=== PATIENT | male | born 1970 | race Caucasian/White ===

== ENCOUNTER → 2016-11-15 | Outpatient (CLI) | payer MEDICAID ==
[~2016-11-15] MED LIST: REGADENOSON INJ 0.4 MG/5 ML DISP.SYRIN IV ONE
--- NOTE | 2016-11-15 20:41 | DRAGON STRESS TEST REPORT ---
Intravenous Lexiscan Cardiolite stress test using single photon emmision computerized tomography. Date of procedure: 11/15/2016. Ordering Provider: Dr. Jennifer Mclaughlin. Primary Care Provider: Ms. Sherry Short NP. [[facility]] Indication: Chest pain, and dyspnea on exertion. Coronary risk factors: Age, hypertension, dyslipidemia, history of tobacco abuse, and family history of coronary artery disease. Resting EKG: Sinus Rhythm. Poor R wave leads V1 to V6 Stress EKG: No changes of ischemia. The patient had no chest pain, or discomfort, and there were no arrhythmias. Reason for termination: Protocol. Conclusions: Normal EKG and hemodynamic response to IV Lexiscan. Nuclear data: At rest the patient was given 15.0 millicuries of technetium 99m sestamibi injected intravenously. As per protocol rest non gated SPECT images were obtained. Subsequently the patient was given intravenous Lexiscan at a dose of 0.4 mg in 5 mL intravenously, followed by flush with normal saline. Subsequently the stress dose of 43.4 millicuries of technetium 99m sestamibi was injected intravenously. As per protocol stress gated images were obtained. Nuclear interpretation: Review of images showed that all segments of the myocardium had normal perfusion at rest, and normal perfusion post stress with IV Lexiscan. All segments of the myocardium had normal motion, contraction, and thickening by gated study. T. I D. ratio was read by the computer as abnormal at 1.36. This is unreliable. Visually the T I D ratio is normal Computer read rest, and stress left ventricular ejection fraction were 66 %, and 59 %, respectively. Conclusion: 1. There is no scintigraphic evidence of Lexiscan induced myocardial ischemia. 2. There is no scintigraphic evidence of myocardial infarction/scar. Recommendations: Aggressive risk factor modification, and treating the underlying co- morbidities. MTDD
== END ==
LOC: RAD 06:00
PROVIDERS: ATTEND Specialist
DX: R07.9 Chest pain, unspecified (principal); R06.09 Other forms of dyspnea; I10 Essential (primary) hypertension; E78.5 Hyperlipidemia, unspecified; Z82.49 Family history of ischemic heart disease and other diseases of the circulatory system; Z87.891 Personal history of nicotine dependence
CPT/HCPCS: 93017; 78452; A9500; J2785; Q9969

== ENCOUNTER 2016-12-20 11:15 | Emergency (ER) | payer MEDICAID ==
--- NOTE | 2016-12-20 11:20 | ER Document Report ---
ED Medical Screen (RME) - General Stated Complaint: DIZZINESS Notes: 46 yo male c/o dizziness since 0500 this morning. pt hx/o vertigo. dizziness increases with change of position. sitting 117/90 88 standing 136/98 101 + nuasea, no fever TRAVEL OUTSIDE OF THE [place] IN LAST 30 DAYS: No - Related Data Allergies/Adverse Reactions: morphine [Morphine] Allergy (Intermediate, Verified 05/31/16 13:33) Hives naproxen [Naproxen] Adverse Reaction (Mild, Verified 05/31/16 13:40) Nausea Past Medical History Pulmonary Medical History: Reports: Hx Bronchitis, Hx COPD, Hx Pneumonia Denies: Hx Tuberculosis Renal/ Medical History: Reports: Hx Testicular Torsion GI Medical History: Reports: Hx Gastroesophageal Reflux Disease, Hx Hiatal Hernia - repaired in 2000 & 09/2015 Musculoskeltal Medical History: Reports Hx Arthritis, Reports Hx Musculoskeletal Trauma Psychiatric Medical History: Reports: Hx Depression Traumatic Medical History: Reports: Hx Fractures - boxer Past Surgical History: Reports: Hx Abdominal Surgery - hiatal hernia repair 10 years ago and again on 10/07/2015, Hx Appendectomy - 2002, Hx Cholecystectomy - 2009, Hx Genitourinary Surgery - testicular torsion pexy 1984 - Immunizations Immunizations up to date: Yes Hx Diphtheria, Pertussis, Tetanus Vaccination: Yes - 2006
[2016-12-20 11:59] LABS: ABSOLUTE BASOPHILS # (AUTO) 0.1 10^3/uL (0.0-0.2); ABSOLUTE EOSINOPHILS # (AUTO) 0.2 10^3/uL (0.0-0.6); ABSOLUTE LYMPHOCYTES (AUTO) 2.1 10^3/uL (0.5-4.7); ABSOLUTE MONOCYTES (AUTO) 0.3 10^3/uL (0.1-1.4); ABSOLUTE NEUT (AUTO) 4.6 10^3/uL (1.7-8.2); BASOPHILS % (AUTO) 1.8 % (0-2); EOSINOPHILS % (AUTO) 2.5 % (0-6); HEMATOCRIT 45.4 % (37.9-51.0); HEMOGLOBIN 15.6 g/dL (13.5-17.0); HGB HCT DIFFERENCE 1.4; MEAN CORPUSCULAR HEMOGLOBIN 31.8 pg (27.0-33.4); MEAN CORPUSCULAR HGB CONC 34.3 g/dL (32.0-36.0); MEAN CORPUSCULAR VOLUME 93 fl (80-97); MONOCYTES % (AUTO) 4.7 % (3-13); RED BLOOD COUNT 4.91 10^6/uL (4.35-5.55); RED CELL DISTRIBUTION WIDTH 14.2 % (11.5-14.0); WHITE BLOOD COUNT 7.4 10^3/uL (4.0-10.5)
[2016-12-20 12:08] LABS: ALANINE AMINOTRANSFERASE 38 U/L (21-72); ALBUMIN 4.4 g/dL (3.5-5.0); ALKALINE PHOSPHATASE 122 U/L (38-126); ANION GAP 12 (5-19); ASPARTATE AMINO TRANSFERASE 30 U/L (17-59); BILIRUBIN,TOTAL 0.4 mg/dL (0.2-1.3); BLOOD UREA NITROGEN 12 mg/dL (7-20); CALCIUM 9.7 mg/dL (8.4-10.2); CARBON DIOXIDE 23 mmol/L (22-30); CHLORIDE 106 mmol/L (98-107); CREATINE KINASE 186 U/L (55-170); CREATININE RESULT 0.84 mg/dL (0.52-1.25); GLUCOSE 164 mg/dL (75-110); POTASSIUM 4.8 mmol/L (3.6-5.0); SODIUM 141.2 mmol/L (137-145); TOTAL PROTEIN 7.5 g/dL (6.3-8.2)
[2016-12-20 12:20] LABS: CREATINE KINASE MB 1.27 ng/mL (<4.55)
[2016-12-20 12:24] LABS: TROPONIN I < 0.012 ng/mL
[2016-12-20 12:27] LABS: APPEARANCE,URINE CLEAR; BILIRUBIN,URINE NEGATIVE (NEGATIVE); GLUCOSE, URINE NEGATIVE (NEGATIVE); KETONES,URINE NEGATIVE (NEGATIVE); LEUKOCYTE ESTERASE,URINE NEGATIVE (NEGATIVE); NITRITE,URINE NEGATIVE (NEGATIVE); PROTEIN,URINE NEGATIVE (NEGATIVE); URINE SPECIFIC GRAVITY 1.019; UROBILINOGEN,URINE NEGATIVE mg/dL (<2.0)
[2016-12-20] MEDS ORDERED: NORMAL SALINE 1000 ML 1,000 ML IV PRN (12:49)
[2016-12-20] MEDS ORDERED: ONDANSETRON HCL INJ/PF 4 MG/2 ML SDV IV ONE (12:52)
[2016-12-20] MEDS ORDERED: PROCHLORPERAZINE EDISYLATE INJ 10 MG/2 ML VIAL IV ONE (12:52)
--- NOTE | 2016-12-20 14:29 | ER Document Report ---
ED General - General Chief Complaint: Dizziness Stated Complaint: DIZZINESS TRAVEL OUTSIDE OF THE [place] IN LAST 30 DAYS: No - HPI Patient complains to provider of: dizziness Notes: Patient coming in for evaluation of dizziness. Patient called EMS upon arrival did perform orthostatics which were positive. Patient denies any nausea vomiting fever chills chest pain abdominal pain for his dizziness. Patient states dizziness is increased with change of position. Otherwise patient denies any recent antibiotics travel denies any other symptoms - Related Data Allergies/Adverse Reactions: morphine [Morphine] Allergy (Intermediate, Verified 12/20/16 11:18) Hives naproxen [Naproxen] Adverse Reaction (Mild, Verified 12/20/16 11:18) Nausea Past Medical History - Social History Smoking Status: Former Smoker Chew tobacco use (# tins/day): No Frequency of alcohol use: None Drug Abuse: None Family History: Reviewed & Not Pertinent, Arthritis, CAD, CVA, Hyperlipidemia, Hypertension, Other Patient has suicidal ideation: No Patient has homicidal ideation: No - Past Medical History Cardiac Medical History: Reports: Hx Hypercholesterolemia, Hx Hypertension Pulmonary Medical History: Reports: Hx Bronchitis, Hx COPD, Hx Pneumonia Denies: Hx Tuberculosis Renal/ Medical History: Reports: Hx Testicular Torsion. Denies: Hx Peritoneal Dialysis GI Medical History: Reports: Hx Gastroesophageal Reflux Disease, Hx Hiatal Hernia - repaired in 2000 & 09/2015 Musculoskeltal Medical History: Reports Hx Arthritis, Reports Hx Musculoskeletal Trauma Psychiatric Medical History: Reports: Hx Depression Traumatic Medical History: Reports: Hx Fractures - boxer Past Surgical History: Reports: Hx Abdominal Surgery - hiatal hernia repair 10 years ago and again on 10/07/2015, Hx Appendectomy - 2002, Hx Cholecystectomy - 2009, Hx Genitourinary Surgery - testicular torsion pexy 1984 - Immunizations Immunizations up to date: Yes Hx Diphtheria, Pertussis, Tetanus Vaccination: Yes - 2006 Review of Systems - Review of Systems Constitutional: No symptoms reported EENT: No symptoms reported Cardiovascular: No symptoms reported Respiratory: No symptoms reported Gastrointestinal: No symptoms reported Genitourinary: No symptoms reported Male Genitourinary: No symptoms reported Musculoskeletal: No symptoms reported Skin: No symptoms reported Hematologic/Lymphatic: No symptoms reported Neurological/Psychological: Other - Dizziness -: Yes All other systems reviewed and negative Physical Exam - Vital signs Vitals: Temp Pulse Resp BP Pulse Ox 97.9 F 96 16 129/89 H 92 02/22/17 11:26 12/20/16 11:26 12/20/16 11:26 12/20/16 11:26 12/20/16 11:26 Interpretation: Normal - General General appearance: Appears well, Alert - HEENT Head: Normocephalic, Atraumatic Eyes: Normal Pupils: PERRL - Respiratory Respiratory status: No respiratory distress Chest status: Nontender Breath sounds: Normal Chest palpation: Normal - Cardiovascular Rhythm: Regular Heart sounds: Normal auscultation Murmur: No - Abdominal Inspection: Normal Distension: No distension Bowel sounds: Normal Tenderness: Nontender Organomegaly: No organomegaly - Back Back: Normal, Nontender - Extremities General upper extremity: Normal inspection, Nontender, Normal color, Normal ROM , Normal temperature General lower extremity: Normal inspection, Nontender, Normal color, Normal ROM , Normal temperature, Normal weight bearing. No: Maximus's sign - Neurological Neuro grossly intact: Yes Cognition: Normal Orientation: AAOx4 Priya Coma Scale Eye Opening: Spontaneous [place] Coma Scale Verbal: Oriented [place] Coma Scale Motor: Obeys Commands [place] Coma Scale Total: 15 Speech: Normal Motor strength normal: LUE, RUE, LLE, RLE Sensory: Normal - Psychological Associated symptoms: Normal affect, Normal mood - Skin Skin Temperature: Warm Skin Moisture: Dry Skin Color: Normal Course - Re-evaluation Re-evalutation: 12/20/16 16:06 Patient's symptoms improved with IV hydration. Patient was encouraged to drink plenty of fluids at home as that he is more likely is experiencing orthostatic dizziness. Patient states understanding was discharged home. - Vital Signs Vital signs: Temp Pulse Resp BP Pulse Ox 97.5 F 74 16 129/85 H 98 12/20/16 14:43 12/20/16 14:43 12/20/16 14:43 12/20/16 14:43 12/20/16 14:43 - Laboratory Result Diagrams: 12/20/16 11:30 12/20/16 11:30 Laboratory results interpreted by me: 12/20/16 12/20/16 11:30 11:30 RDW 14.2 H Glucose 164 H Creatine Kinase 186 H Discharge - Discharge Clinical Impression: Orthostatic dizziness, Dehydration Condition: Good Disposition: HOME, SELF-CARE Instructions: Dizziness ([facility]), Orthostatic Hypotension ([facility]), Dehydration ([facility]) Additional Instructions: Take medication as prescribed. Return to the ER symptoms worsen. Follow-up with your primary care physician. Prescriptions: Ondansetron [Zofran Odt 4 mg Tablet] 1 - 2 tab PO Q4H PRN #20 tab.rapdis PRN Reason: For Nausea/Vomiting Prochlorperazine Maleate [Compazine 10 mg Tablet] 10 mg PO ASDIR PRN #20 tablet PRN Reason: Forms: Return to Work
[2016-12-20 14:49] VITALS: BP 129/85
== END 2016-12-20 14:49 | disposition home or self-care (01) ==
LOC: ER 11:15
DX: R42 Dizziness and giddiness (principal); E86.0 Dehydration; E78.00 Pure hypercholesterolemia, unspecified; I10 Essential (primary) hypertension; J44.9 Chronic obstructive pulmonary disease, unspecified; Z88.6 Allergy status to analgesic agent; Z90.49 Acquired absence of other specified parts of digestive tract
CPT/HCPCS: 99284; 96361; 96374; 96375; 36415; 82553; 82550; 85025; 80053; 81001; 84484; J0780; J2405; J7030

== ENCOUNTER → 2017-03-28 | Outpatient (CLI) | payer OTHER ==
[~2017-03-28] MED LIST changes: +ALBUTEROL SULFATE 0.083% NEB 2.5 MG/3 ML AMPUL NEB ONE; -REGADENOSON INJ 0.4 MG/5 ML DISP.SYRIN IV ONE
--- NOTE | 2017-03-29 08:54 | PULMONARY FUNCTION TEST ---
DATE OF SERVICE: 03/28/2017 THE VITAL CAPACITY IS NORMAL. THE EXPIRATORY FLOW RATES ARE SLIGHTLY DECREASED. THE FEV1/VC IS 51%, PREDICTED: 81% THE DLCO IS 19.1, 66% OF PREDICTED. AFTER BRONCHODILATOR, EXPIRATORY FLOW RATES SHOW NO SIGNIFICANT CHANGE. IMPRESSION: GOOD PATIENT EFFORT. SLIGHT OBSTRUCTIVE DEFECT. DIFFUSING CAPACITY IS MODERATELY DECREASED. CC: AISHA BERGERON MD > ELYD
== END ==
LOC: RT 12:58
PROVIDERS: ATTEND Psychiatry & Neurology Psychiatry
DX: J44.9 Chronic obstructive pulmonary disease, unspecified (principal)
CPT/HCPCS: 94060; 94729

== ENCOUNTER 2017-11-22 12:18 | Emergency (ER) | payer MEDICAID ==
--- NOTE | 2017-11-22 15:04 | ER Document Report ---
ED Medical Screen (RME) - General Chief Complaint: Chest Pain Stated Complaint: CHEST PAIN Time Seen by Provider: 11/22/17 14:57 Mode of Arrival: Medic Information source: Patient Notes: 46 yo ex smoker, hyperlipidemic, htn, non dm, no CAD, COPD, male brought in by EMS with left chest tightness at 9:30 am while watching TV 4/5, radiation to left jaw and into left shoulder,dizzy, hands got sweaty, elevated blood pressure while watching TV, 325mg aspiring taken this morning at 10:30 am. Stress test and echo 2017 normal at [facility] -preop for paritial left pneumotectomy ( COPD) which was not done. No fever. Chronic cough. FH: dad stroke. Pain level stil 4/5 at this time. TRAVEL OUTSIDE OF THE [place] IN LAST 30 DAYS: No - Related Data Allergies/Adverse Reactions: morphine [Morphine] Allergy (Intermediate, Verified 12/20/16 11:18) Hives naproxen [Naproxen] Adverse Reaction (Mild, Verified 12/20/16 11:18) Nausea Past Medical History - Past Medical History Cardiac Medical History: Reports: Hx Hypercholesterolemia, Hx Hypertension Pulmonary Medical History: Reports: Hx Bronchitis, Hx COPD, Hx Pneumonia Denies: Hx Tuberculosis Renal/ Medical History: Reports: Hx Testicular Torsion. Denies: Hx Peritoneal Dialysis GI Medical History: Reports: Hx Gastroesophageal Reflux Disease, Hx Hiatal Hernia - repaired in 2000 & 09/2015 Musculoskeltal Medical History: Reports Hx Arthritis, Reports Hx Musculoskeletal Trauma Psychiatric Medical History: Reports: Hx Depression Traumatic Medical History: Reports: Hx Fractures - boxer Past Surgical History: Reports: Hx Abdominal Surgery - hiatal hernia repair 10 years ago and again on 10/07/2015, Hx Appendectomy - 2002, Hx Cholecystectomy - 2009, Hx Genitourinary Surgery - testicular torsion pexy 1984 - Immunizations Immunizations up to date: Yes Hx Diphtheria, Pertussis, Tetanus Vaccination: Yes - 2006 Physical Exam - Vital signs Vitals: Temp Pulse Resp BP Pulse Ox 98.4 F 74 16 134/83 H 98 11/22/17 13:19 11/22/17 13:19 11/22/17 13:19 11/22/17 13:19 11/22/17 13:19 Course - Vital Signs Vital signs: Temp Pulse Resp BP Pulse Ox 98.4 F 74 16 134/83 H 98 11/22/17 13:19 11/22/17 13:19 11/22/17 13:19 11/22/17 13:19 11/22/17 13:19
[2017-11-22] MEDS ORDERED: ASPIRIN 81 MG TABLET, CHEWABLE PO ONE (15:05)
--- NOTE | 2017-11-22 15:40 | EKG REPORT ---
SEVERITY:- NORMAL ECG - SINUS RHYTHM : Confirmed by: Rossana Roman 22-Nov-2017 15:39:57
--- NOTE | 2017-11-22 15:55 | RADIOLOGY REPORT (SQ) ---
EXAM DESCRIPTION: CHEST PA/LAT COMPLETED DATE/TIME: 11/22/2017 3:47 pm REASON FOR STUDY: left chest pain COMPARISON: 05/25/2016. EXAM PARAMETERS: NUMBER OF VIEWS: two views TECHNIQUE: Digital Frontal and Lateral radiographic views of the chest acquired. RADIATION DOSE: NA LIMITATIONS: none FINDINGS: LUNGS AND PLEURA: Mild basilar scarring. No opacities, masses or pneumothorax. No pleural effusion. MEDIASTINUM AND HILAR STRUCTURES: No masses or contour abnormalities. HEART AND VASCULAR STRUCTURES: Heart normal size. No evidence for failure. BONES: No acute findings. HARDWARE: None in the chest. OTHER: No other significant finding. IMPRESSION: NO ACUTE RADIOGRAPHIC FINDING IN THE CHEST. TECHNICAL DOCUMENTATION: JOB ID: [id number] [employer]- All Rights Reserved
[2017-11-22 15:57] LABS: ABSOLUTE BASOPHILS # (AUTO) 0.1 10^3/uL (0.0-0.2); ABSOLUTE LYMPHOCYTES (AUTO) 2.7 10^3/uL (0.5-4.7); ABSOLUTE MONOCYTES (AUTO) 0.3 10^3/uL (0.1-1.4); ABSOLUTE NEUT (AUTO) 4.5 10^3/uL (1.7-8.2); EOSINOPHILS % (AUTO) 0.2 % (0-6); HEMATOCRIT 47.5 % (37.9-51.0); HEMOGLOBIN 16.2 g/dL (13.5-17.0); LYMPHOCYTES % (AUTO) 35.2 % (13-45); MEAN CORPUSCULAR HEMOGLOBIN 31.4 pg (27.0-33.4); MEAN CORPUSCULAR HGB CONC 34.1 g/dL (32.0-36.0); MEAN CORPUSCULAR VOLUME 92 fl (80-97); MONOCYTES % (AUTO) 4.5 % (3-13); PLATELET COUNT 295 10^3/uL (150-450); RED BLOOD COUNT 5.16 10^6/uL (4.35-5.55); RED CELL DISTRIBUTION WIDTH 13.9 % (11.5-14.0); SEGMENTED NEUTROPHILS % (AUTO) 59.1 % (42-78); TOTAL CELLS COUNTED % (AUTO) 100 %; WHITE BLOOD COUNT 7.6 10^3/uL (4.0-10.5)
[2017-11-22 16:12] LABS: ALANINE AMINOTRANSFERASE 36 U/L (21-72); ALBUMIN 4.8 g/dL (3.5-5.0); ALKALINE PHOSPHATASE 92 U/L (38-126); ANION GAP 12 (5-19); ASPARTATE AMINO TRANSFERASE 29 U/L (17-59); BILIRUBIN,DIRECT 0.2 mg/dL (0.0-0.4); BILIRUBIN,TOTAL 0.5 mg/dL (0.2-1.3); BLOOD UREA NITROGEN 9 mg/dL (7-20); CALCIUM 10.2 mg/dL (8.4-10.2); CARBON DIOXIDE 24 mmol/L (22-30); CHLORIDE 106 mmol/L (98-107); CREATINE KINASE 188 U/L (55-170); GLUCOSE 94 mg/dL (75-110); POTASSIUM 4.5 mmol/L (3.6-5.0); SODIUM 141.8 mmol/L (137-145); TOTAL PROTEIN 7.6 g/dL (6.3-8.2)
[2017-11-22 16:25] LABS: CREATINE KINASE MB 1.35 ng/mL (<4.55); TROPONIN I < 0.012 ng/mL
[2017-11-22] MEDS ORDERED: LORAZEPAM 1 MG TABLET PO ONE (19:36)
--- NOTE | 2017-11-22 19:39 | ER Document Report ---
ED General - General Chief Complaint: Chest Pain Stated Complaint: CHEST PAIN Time Seen by Provider: 11/22/17 14:57 Mode of Arrival: Medic Notes: Patient is a 46-year-old male that comes emergency department by EMS for chief complaint of chest pain. He states that he was sitting watching TV at about 9 - 9:30 a.m. when he started having chest tightness that radiates to his left shoulder and up towards his neck, he states pain has been present since that time, he reports being intermittently nauseated but denies vomiting. He does report the pain is worse when he moves or raises his left arm/shoulder. He denies injury. He states he felt a little bit lightheaded, he was given 2 sublingual nitroglycerin in route and this made his lightheadedness worse. He took 325 mg of aspirin this morning. Past medical history of previous smoking, COPD, chronic cough, hypertension, hyperlipidemia, and "chronic anxiety and depression". He states he is out of his blood pressure and hyperlipidemia medications. He denies any recreational drugs. He denies fever or chills. No primary family members with HI history. He had a echocardiogram and stress test last year that were normal. TRAVEL OUTSIDE OF THE [place] IN LAST 30 DAYS: No - Related Data Allergies/Adverse Reactions: morphine [Morphine] Allergy (Intermediate, Verified 12/20/16 11:18) Hives naproxen [Naproxen] Adverse Reaction (Mild, Verified 12/20/16 11:18) Nausea Past Medical History - General Information source: Patient - Social History Smoking Status: Former Smoker Chew tobacco use (# tins/day): No Frequency of alcohol use: None Drug Abuse: None Family History: Reviewed & Not Pertinent, Arthritis, CAD, CVA, Hyperlipidemia, Hypertension, Other Patient has suicidal ideation: No Patient has homicidal ideation: No - Past Medical History Cardiac Medical History: Reports: Hx Hypercholesterolemia, Hx Hypertension Pulmonary Medical History: Reports: Hx Bronchitis, Hx COPD, Hx Pneumonia Denies: Hx Tuberculosis Renal/ Medical History: Reports: Hx Testicular Torsion. Denies: Hx Peritoneal Dialysis GI Medical History: Reports: Hx Gastroesophageal Reflux Disease, Hx Hiatal Hernia - repaired in 2000 & 09/2015 Musculoskeltal Medical History: Reports Hx Arthritis, Reports Hx Musculoskeletal Trauma Psychiatric Medical History: Reports: Hx Depression Traumatic Medical History: Reports: Hx Fractures - boxer Past Surgical History: Reports: Hx Abdominal Surgery - hiatal hernia repair 10 years ago and again on 10/07/2015, Hx Appendectomy - 2002, Hx Cholecystectomy - 2009, Hx Genitourinary Surgery - testicular torsion pexy 1984 - Immunizations Immunizations up to date: Yes Hx Diphtheria, Pertussis, Tetanus Vaccination: Yes - 2006 Review of Systems - Review of Systems Constitutional: No symptoms reported EENT: No symptoms reported Cardiovascular: See HPI Respiratory: No symptoms reported Gastrointestinal: See HPI Genitourinary: No symptoms reported Male Genitourinary: No symptoms reported Musculoskeletal: No symptoms reported Skin: No symptoms reported Hematologic/Lymphatic: No symptoms reported Neurological/Psychological: See HPI Physical Exam - Vital signs Vitals: Temp Pulse Resp BP Pulse Ox 98.4 F 74 16 134/83 H 98 11/22/17 13:19 11/22/17 13:19 11/22/17 13:19 11/22/17 13:19 11/22/17 13:19 Interpretation: Normal - General General appearance: Appears well, Alert In distress: None - HEENT Head: Normocephalic, Atraumatic Eyes: Normal Conjunctiva: Normal Extraocular movements intact: Yes Eyelashes: Normal Pupils: PERRL Mouth/Lips: Normal Mucous membranes: Normal Pharynx: Normal Neck: Normal - Respiratory Respiratory status: No respiratory distress Chest status: Tender Breath sounds: Normal. No: Decreased air movement, Wheezing Chest palpation: Normal - Cardiovascular Rhythm: Regular. No: Tachycardia Heart sounds: Normal auscultation, S1 appreciated, S2 appreciated Murmur: No - Abdominal Inspection: Normal Distension: No distension Bowel sounds: Normal Tenderness: Nontender. No: Tender, Guarding - Back Back: Normal, Nontender. No: Tender - Extremities General upper extremity: Other - Tenderness with palpation over the left pectoralis muscles, mildly over the supraspinatus, and also mildly over the posterior shoulder. Some pain with movement of the shoulder. Full range of motion is still intact. Normal strength, normal distal neurovascular exam. General lower extremity: Normal inspection, Nontender, Normal ROM, Normal strength - Neurological Neuro grossly intact: Yes Cognition: Normal Orientation: AAOx4 [place] Coma Scale Eye Opening: Spontaneous [place] Coma Scale Verbal: Oriented [place] Coma Scale Motor: Obeys Commands [place] Coma Scale Total: 15 Speech: Normal Motor strength normal: LUE, RUE, LLE, RLE Sensory: Normal - Psychological Associated symptoms: Normal affect, Normal mood - Skin Skin Temperature: Warm Skin Moisture: Dry Skin Color: Normal Course - Re-evaluation Re-evalutation: EKG sinus rhythm with no T-wave inversions or ST segment changes in consecutive leads. Chest x-ray unremarkable. CBC, chemistry unremarkable. Troponin negative. Troponin will be cycled to make sure it is not significantly elevated , however patient has had about 12 hours of symptoms, on examination he has tenderness with movement of his left arm/shoulder, over his upper pectoralis muscle, and over his posterior left shoulder. Appears to be musculoskeletal on exam. Patient has had recent and multiple workups with no evidence of cardiac abnormalities at this point. His symptoms are very nonspecific and reproducible. Patient asking for something for anxiety, he was initially given Ativan. Discussed workup with patient. Patient will be treated with muscle relaxer, discussed additional treatment and follow-up for his shoulder at home, discussed return precautions in detail, patient states satisfaction and agreement. - Vital Signs Vital signs: Temp Pulse Resp BP Pulse Ox 98.6 F 74 18 113/82 94 11/22/17 23:08 11/22/17 13:19 11/22/17 23:07 11/22/17 23:08 11/22/17 23:01 - Laboratory Result Diagrams: 11/22/17 15:40 11/22/17 15:40 Laboratory results interpreted by me: 11/22/17 15:40 Creatine Kinase 188 H Discharge - Discharge Clinical Impression: Left shoulder pain Qualifiers: Chronicity: acute Qualified Code(s): M25.512 - Pain in left shoulder Chest pain Qualifiers: Chest pain type: unspecified Qualified Code(s): R07.9 - Chest pain, unspecified Condition: Stable Disposition: HOME, SELF-CARE Additional Instructions: Your workup today does not show any concerning abnormalities. On exam you have left shoulder and rotator cuff pain. Apply heat to the area, take muscle relaxant as prescribed, rest the shoulder. Follow-up with primary care. Return for any concerning or worsening symptoms including difficulty breathing, vomiting, fever, or any other concerning symptoms. Prescriptions: Methocarbamol [Robaxin 750 mg Tablet] 750 mg PO Q6 #20 tablet
[2017-11-22] MEDS ORDERED: ONDANSETRON HCL INJ/PF 4 MG/2 ML SDV IV ONE (22:35)
[2017-11-22] MEDS ORDERED: KETOROLAC TROMETHAMINE INJ/PF 30 MG/1 ML SDV IV ONE (22:56)
[2017-11-22 23:15] VITALS: BP 113/82
== END 2017-11-22 23:14 | disposition home or self-care (01) ==
LOC: ER 12:18
DX: M25.512 Pain in left shoulder (principal); R07.9 Chest pain, unspecified; E78.00 Pure hypercholesterolemia, unspecified; I10 Essential (primary) hypertension; J44.9 Chronic obstructive pulmonary disease, unspecified; Z88.6 Allergy status to analgesic agent; Z87.891 Personal history of nicotine dependence; Z90.49 Acquired absence of other specified parts of digestive tract
CPT/HCPCS: 93005; 99285; 96374; 36415; 82553; 82550; 85025; 80053; 84484; 71046; 93010; J2405

== ENCOUNTER 2018-06-12 14:04 | Emergency (ER) | payer MEDICAID ==
[2018-06-12 14:47] LABS: ABSOLUTE BASOPHILS # (AUTO) 0.1 10^3/uL (0.0-0.2); ABSOLUTE LYMPHOCYTES (AUTO) 2.4 10^3/uL (0.5-4.7); ABSOLUTE MONOCYTES (AUTO) 0.5 10^3/uL (0.1-1.4); ABSOLUTE NEUT (AUTO) 3.7 10^3/uL (1.7-8.2); BASOPHILS % (AUTO) 1.3 % (0-2); EOSINOPHILS % (AUTO) 0.3 % (0-6); HEMATOCRIT 45.4 % (37.9-51.0); HEMOGLOBIN 15.8 g/dL (13.5-17.0); LYMPHOCYTES % (AUTO) 35.6 % (13-45); MEAN CORPUSCULAR HEMOGLOBIN 32.6 pg (27.0-33.4); MEAN CORPUSCULAR HGB CONC 34.8 g/dL (32.0-36.0); MEAN CORPUSCULAR VOLUME 94 fl (80-97); MONOCYTES % (AUTO) 6.9 % (3-13); PLATELET COUNT 316 10^3/uL (150-450); RED BLOOD COUNT 4.84 10^6/uL (4.35-5.55); RED CELL DISTRIBUTION WIDTH 14.5 % (11.5-14.0); SEGMENTED NEUTROPHILS % (AUTO) 55.9 % (42-78); TOTAL CELLS COUNTED % (AUTO) 100 %; WHITE BLOOD COUNT 6.6 10^3/uL (4.0-10.5)
[2018-06-12 15:17] LABS: ALANINE AMINOTRANSFERASE 31 U/L (21-72); ALBUMIN 4.8 g/dL (3.5-5.0); ALKALINE PHOSPHATASE 98 U/L (38-126); ANION GAP 16 (5-19); ASPARTATE AMINO TRANSFERASE 43 U/L (17-59); BILIRUBIN,DIRECT 0.3 mg/dL (0.0-0.4); BILIRUBIN,TOTAL 0.6 mg/dL (0.2-1.3); BLOOD UREA NITROGEN 11 mg/dL (7-20); CALCIUM 9.8 mg/dL (8.4-10.2); CARBON DIOXIDE 20 mmol/L (22-30); CHLORIDE 110 mmol/L (98-107); CREATINE KINASE 686 U/L (55-170); GLUCOSE 98 mg/dL (75-110); POTASSIUM 4.2 mmol/L (3.6-5.0); TOTAL PROTEIN 8.4 g/dL (6.3-8.2)
[2018-06-12 15:28] LABS: CREATINE KINASE MB 2.75 ng/mL (<4.55)
[2018-06-12 15:29] LABS: TROPONIN I < 0.012 ng/mL
--- NOTE | 2018-06-12 16:03 | RADIOLOGY REPORT (SQ) ---
EXAM DESCRIPTION: CHEST SINGLE VIEW COMPLETED DATE/TIME: 06/12/2018 3:54 pm REASON FOR STUDY: bed 3 cp COMPARISON: 11/22/2017 EXAM PARAMETERS: NUMBER OF VIEWS: One view. TECHNIQUE: Single frontal radiographic view of the chest acquired. RADIATION DOSE: NA LIMITATIONS: None. FINDINGS: LUNGS AND PLEURA: Stable linear areas of increased density are seen bilaterally consistent with mild scarring. Atelectasis felt be less likely. Lungs appear free of active infiltrates. No effusions. MEDIASTINUM AND HILAR STRUCTURES: No masses. Contour normal. HEART AND VASCULAR STRUCTURES: Heart normal in size. Normal vasculature. BONES: No acute findings. HARDWARE: None in the chest. OTHER: No other significant finding. IMPRESSION: Chronic changes without evidence of acute cardiopulmonary disease. TECHNICAL DOCUMENTATION: JOB ID: [id number] [employer]- All Rights Reserved Reading location - IP/workstation name: [email or web address]
[2018-06-12] MEDS ORDERED: NORMAL SALINE 1000 ML 1,000 ML IV ONE (16:50)
[2018-06-12] MEDS ORDERED: METHYLPREDNISOLONE INJ 125 MG/2 ML SDV IV ONE (16:50)
[2018-06-12] MEDS ORDERED: IPRATROPIUM/ALBUTEROL 0.5-2.5 MG/3 ML AMPUL NEB ONE (16:50)
--- NOTE | 2018-06-12 16:55 | ER Document Report ---
ED Cardiac - General Chief Complaint: Chest Pain Stated Complaint: DIZZY Time Seen by Provider: 06/12/18 16:21 Notes: Patient was at work today and he felt dizzy and SOB. HX OF copd. Followed by Dr. Ocasio. Has chronic left sided chest pain. Denies any major symptoms at this time. States he feels a little bit dizzy but otherwise feels a little bit better. That the nitro did not do anything other than give him a headache. TRAVEL OUTSIDE OF THE [place] IN LAST 30 DAYS: No - HPI Patient complains to provider of: Chest pain, Chest tightness, Shortness of breath Was the onset of pain: Gradual Is the pain a: Chronic problem Chest pain location: Substernal Quality of pain: Intermittent, Mild - Related Data Allergies/Adverse Reactions: morphine [Morphine] Allergy (Intermediate, Verified 12/20/16 11:18) Hives naproxen [Naproxen] Adverse Reaction (Mild, Verified 12/20/16 11:18) Nausea Past Medical History - General Information source: Patient - Social History Smoking Status: Current Every Day Smoker Chew tobacco use (# tins/day): No Frequency of alcohol use: Rare Drug Abuse: None Lives with: Family Family History: Reviewed & Not Pertinent, Arthritis, CAD, CVA, Hyperlipidemia, Hypertension, Other Patient has suicidal ideation: No Patient has homicidal ideation: No - Past Medical History Cardiac Medical History: Reports: Hx Hypercholesterolemia, Hx Hypertension Pulmonary Medical History: Reports: Hx Bronchitis, Hx COPD, Hx Pneumonia Denies: Hx Tuberculosis Renal/ Medical History: Reports: Hx Testicular Torsion. Denies: Hx Peritoneal Dialysis GI Medical History: Reports: Hx Gastroesophageal Reflux Disease, Hx Hiatal Hernia - repaired in 2000 & 09/2015 Musculoskeletal Medical History: Reports Hx Arthritis, Reports Hx Musculoskeletal Trauma Psychiatric Medical History: Reports: Hx Depression Traumatic Medical History: Reports: Hx Fractures - boxer Past Surgical History: Reports: Hx Abdominal Surgery - hiatal hernia repair 10 years ago and again on 10/07/2015, Hx Appendectomy - 2002, Hx Cholecystectomy - 2009, Hx Genitourinary Surgery - testicular torsion pexy 1984 - Immunizations Immunizations up to date: Yes Hx Diphtheria, Pertussis, Tetanus Vaccination: Yes - 2006 Review of Systems - Review of Systems Notes: Constitutional: denies: Chills, Diaphoresis, Fever, Malaise, Weakness EENT: denies: Eye discharge, Blurred vision, Tearing, Double vision, Nose congestion, Nose discharge, Throat swelling, Mouth pain Cardiovascular: Patient complaining of some left-sided chest pain worse with deep inspiration, mild dizziness, mild shortness of breath Respiratory: Patient complaining of shortness of breath, cough. History of COPD /emphysema. 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 Gastrointestinal: denies: Abdominal pain, Diarrhea, Nausea, Vomiting, Black stools, bright red blood in stool Genitourinary: denies: Burning, Dysuria, Discharge, Frequency, Flank pain, Hematuria Musculoskeletal: denies: Joint pain, Joint swelling, Muscle pain, Muscle stiffness, back pain Hematologic/Lymphatic: denies: Anemia, Easy bleeding, Easy bruising, Blood clots Neurological/Psychological: denies: Confusion, Dementia, Depression, Loss of consciousness Skin: No lesions, no masses, no skin breakdown, no abscesses Physical Exam - Vital signs Vitals: Pulse Ox 98 06/12/18 14:11 Interpretation: Normal - General General appearance: Appears well, Alert - HEENT Head: Normocephalic, Atraumatic Eyes: Normal Pupils: PERRL - Respiratory Respiratory status: No respiratory distress Chest status: Nontender Breath sounds: Rales, Other - Bilateral coarse breath sounds of the lower lobes Chest palpation: Normal - Cardiovascular Rhythm: Regular Heart sounds: Normal auscultation Murmur: No - Abdominal Inspection: Normal Distension: No distension Bowel sounds: Normal Tenderness: Nontender Organomegaly: No organomegaly - Back Back: Normal, Nontender - Extremities General upper extremity: Normal inspection, Nontender, Normal color, Normal ROM , Normal temperature General lower extremity: Normal inspection, Nontender, Normal color, Normal ROM , Normal temperature, Normal weight bearing. No: Maximus's sign - Neurological Neuro grossly intact: Yes Cognition: Normal Orientation: AAOx4 Priya Coma Scale Eye Opening: Spontaneous Priya Coma Scale Verbal: Oriented Priya Coma Scale Motor: Obeys Commands Priya Coma Scale Total: 15 Speech: Normal Motor strength normal: LUE, RUE, LLE, RLE Sensory: Normal - Psychological Associated symptoms: Normal affect, Normal mood - Skin Skin Temperature: Warm Skin Moisture: Dry Skin Color: Normal Course - Re-evaluation Re-evalutation: 06/12/18 20:00 Laboratory 06/12/18 06/12/18 06/12/18 13:43 13:43 13:43 WBC 6.6 RBC 4.84 Hgb 15.8 Hct 45.4 MCV 94 MCH 32.6 MCHC 34.8 RDW 14.5 H Plt Count 316 Seg Neutrophils % 55.9 Lymphocytes % 35.6 Monocytes % 6.9 Eosinophils % 0.3 Basophils % 1.3 Absolute Neutrophils 3.7 Absolute Lymphocytes 2.4 Absolute Monocytes 0.5 Absolute Eosinophils 0.0 Absolute Basophils 0.1 Sodium 146.0 H Potassium 4.2 Chloride 110 H Carbon Dioxide 20 L Anion Gap 16 BUN 11 Creatinine 1.11 Est GFR ( Amer) > 60 Est GFR (Non-Af Amer) > 60 Glucose 98 Calcium 9.8 Total Bilirubin 0.6 Direct Bilirubin 0.3 Neonat Total Bilirubin Not Reportable Neonat Direct Bilirubin Not Reportable Neonat Indirect Bili Not Reportable AST 43 ALT 31 Alkaline Phosphatase 98 Creatine Kinase 686 H CK-MB (CK-2) 2.75 Troponin I < 0.012 Total Protein 8.4 H Albumin 4.8 Chest X-Ray 06/12/18 14:11 IMPRESSION: Chronic changes without evidence of acute cardiopulmonary disease. Patient was initially seen. I had ordered some IV fluids and a repeat troponin and a breathing treatment. Patient stated that he had a phone call after I walked out of the room and there was a family emergency that he had to attend to. Patient signed out AMA. Will return if his symptoms get worse. - Vital Signs Vital signs: Temp Pulse Resp BP Pulse Ox 97.8 F 65 12 132/94 H 100 06/12/18 15:34 06/12/18 15:34 06/12/18 17:02 06/12/18 17:03 06/12/18 17:02 - Laboratory Result Diagrams: 06/12/18 13:43 06/12/18 13:43 Laboratory results interpreted by me: 06/12/18 06/12/18 13:43 13:43 RDW 14.5 H Sodium 146.0 H Chloride 110 H Carbon Dioxide 20 L Creatine Kinase 686 H Total Protein 8.4 H - EKG Interpretation by Ut EKG shows normal: Sinus rhythm, [place], Intervals, QRS Complexes, ST-T Waves Discharge - Discharge Clinical Impression: COPD exacerbation Condition: Good Disposition: HOME, SELF-CARE Instructions: Chest Wall Pain ([facility]), Chronic Obstructive Lung Disease ([facility]) Additional Instructions: Please note that you left before completion of your work out. In the event that your symptoms return or you have any worsening symptoms you should return immediately for repeat evaluation. It is highly recommended that you follow-up with your regular doctor or your printing plate maker tomorrow to have a repeat evaluation performed. Recommend giving her some breathing treatments when you get home. Please discuss with your printing plate maker or primary care doctor about the need possibility of starting on antibiotics and steroids for your symptoms as well. We are not going to do that at this time but this may be indicated. Referrals: PATY ARELLANO MD [Primary Care Provider] - Follow up as needed TIFFANY OCASIO MD [ACTIVE STAFF] - Follow up tomorrow
[2018-06-12 17:13] VITALS: BP 132/94
--- NOTE | 2018-06-13 07:46 | EKG REPORT ---
SEVERITY:- BORDERLINE ECG - SINUS RHYTHM BORDERLINE LEFT AXIS DEVIATION BORDERLINE PROLONGED QT INTERVAL : Confirmed by: Andres Albrecht MD 13-Jun-2018 07:45:45
== END 2018-06-12 17:05 | disposition home or self-care (01) ==
LOC: ER 14:04
DX: J44.1 Chronic obstructive pulmonary disease with (acute) exacerbation (principal); R07.9 Chest pain, unspecified; R42 Dizziness and giddiness; R06.02 Shortness of breath; F17.200 Nicotine dependence, unspecified, uncomplicated; I10 Essential (primary) hypertension
CPT/HCPCS: 36415; 71045; 80053; 82550; 82553; 84484; 85025; 93005; 93010; 99285

== ENCOUNTER 2018-08-08 12:06 | Emergency (ER) | payer MEDICAID ==
--- NOTE | 2018-08-08 12:39 | ER Document Report ---
ED General - General Mode of Arrival: Ambulatory Information source: Patient TRAVEL OUTSIDE OF THE [place] IN LAST 30 DAYS: No <NEO MERCHANT - Last Filed: 08/08/18 14:20> <LINDY MAE - Last Filed: 08/08/18 16:45> - General Chief Complaint: Electrocution Stated Complaint: CHEST PAIN Time Seen by Provider: 08/08/18 12:22 Notes: 47-year-old male who presents to the emergency department today with complaints of electrocution. Patient states he was ripping out drywall out of a newly purchased house when he grabbed a "bare wire". Patient states he was unable to let the wire go until the main power to the house was cut off which took approximately 10-15 seconds. Patient states he was told he "fell to the floor" after the power was cut off and "lost consciousness". Patient states he has chest pain. (NEO MERCHANT) - Related Data Allergies/Adverse Reactions: morphine [Morphine] Allergy (Intermediate, Verified 12/20/16 11:18) Hives naproxen [Naproxen] Adverse Reaction (Mild, Verified 12/20/16 11:18) Nausea Past Medical History - General Information source: Patient - Social History Smoking Status: Current Every Day Smoker Cigarette use (# per day): Yes Lives with: Family Family History: Reviewed & Not Pertinent, Arthritis, CAD, CVA, Hyperlipidemia, Hypertension, Other - Past Medical History Cardiac Medical History: Reports: Hx Hypercholesterolemia, Hx Hypertension Pulmonary Medical History: Reports: Hx Bronchitis, Hx COPD, Hx Pneumonia Renal/ Medical History: Reports: Hx Testicular Torsion GI Medical History: Reports: Hx Gastroesophageal Reflux Disease, Hx Hiatal Hernia - repaired in 2000 & 09/2015 Musculoskeletal Medical History: Reports Hx Arthritis, Reports Hx Musculoskeletal Trauma Psychiatric Medical History: Reports: Hx Depression Traumatic Medical History: Reports: Hx Fractures - boxer Past Surgical History: Reports: Hx Abdominal Surgery - hiatal hernia repair 10 years ago and again on 10/07/2015, Hx Appendectomy - 2002, Hx Cholecystectomy - 2009, Hx Genitourinary Surgery - testicular torsion pexy 1984 - Immunizations Immunizations up to date: Yes Hx Diphtheria, Pertussis, Tetanus Vaccination: Yes - 2006 <NEO MERCHANT - Last Filed: 08/08/18 14:20> Review of Systems - Review of Systems Constitutional: See HPI, Other - electrocution EENT: No symptoms reported Cardiovascular: No symptoms reported Respiratory: No symptoms reported Gastrointestinal: No symptoms reported Genitourinary: No symptoms reported Male Genitourinary: No symptoms reported Musculoskeletal: No symptoms reported Skin: No symptoms reported Hematologic/Lymphatic: No symptoms reported Neurological/Psychological: No symptoms reported -: Yes All other systems reviewed and negative <NEO MERCHANT - Last Filed: 08/08/18 14:20> Physical Exam <NEO MERCHANT - Last Filed: 08/08/18 14:20> <LINDY MAE - Last Filed: 08/08/18 16:45> - Vital signs Vitals: Temp Pulse Resp BP Pulse Ox 98.7 F 83 18 151/93 H 93 08/08/18 12:13 08/08/18 12:13 08/08/18 12:13 08/08/18 12:13 08/08/18 12:13 - Notes Notes: Physical Exam: General: Alert, appears well. HEENT: Normocephalic. Atraumatic. PERRL. Extraocular movements intact. Oropharynx clear. Neck: Supple. Non-tender. Respiratory: No respiratory distress. Clear and equal breath sounds bilaterally. Complains of chest wall pain, especially when sitting up/coughing, but area is not tender with palpation. Cardiovascular: Regular rate and rhythm. Abdominal: Normal Inspection. Non-tender. No distension. Normal Bowel Sounds. Back: Non-tender. No deformity or step off. Extremities: Moves all four extremities. Upper extremities: Normal inspection. Normal ROM. No LUE extremity tenderness with palpation. No agarwal or discoloration to left hand, there are two calluses over the 3rd/4th metacarpal heads. Lower extremities: Normal inspection. No edema. Normal ROM. Neurological: Normal cognition. AAOx4. Normal speech. Psychological: Normal affect. Normal Mood. Skin: Warm. Dry. Normal color. (NEO MERCHANT) Course - Laboratory Result Diagrams: 08/08/18 12:26 08/08/18 12:26 <NEO MERCHANT - Last Filed: 08/08/18 14:20> - Laboratory Result Diagrams: 08/08/18 12:26 08/08/18 12:26 <LINDY MAE - Last Filed: 08/08/18 16:45> - Re-evaluation Re-evalutation: 08/08/18 16:42 Patient was able to find out that the wire he touched was connected to an outlet in his bathroom. That confirms it was 110 V wire. 2 sets of troponins are negative. Total CK was 280, on repeat was 256. The patient was wearing work boots and standing on a plywood floor. His other hand was pressed against sheet rock, and the involved hand does not show any agarwal. (LINDY MAE) - Vital Signs Vital signs: Temp Pulse Resp BP Pulse Ox 98.7 F 83 16 143/94 H 93 08/08/18 12:13 08/08/18 12:13 08/08/18 16:00 08/08/18 15:01 08/08/18 16:00 - Laboratory Laboratory results interpreted by me: 08/08/18 08/08/18 12:26 14:55 Chloride 110 H Creatine Kinase 280 H 256 H Discharge <NEO MERCHANT - Last Filed: 08/08/18 14:20> <LINDY MAE - Last Filed: 08/08/18 16:45> - Discharge Clinical Impression: Electrical shock of hand Qualifiers: Encounter type: initial encounter Qualified Code(s): T75.4XXA - Electrocution, initial encounter Condition: Stable Disposition: HOME, SELF-CARE Additional Instructions: Electrical Injury Electrical shocks vary greatly in severity. The history of the exposure, plus the physician's exam, determines the likelihood of internal injury. The most severe injuries are caused by high-voltage lines. As the electricity passes through the body, muscle and nerve tissues are "cooked." Hospitalization is usually required unless the injury was simply a "flash" in which electricity did not actually enter the body. Household current (110 volt) rarely causes internal injury to nerves and muscles. Household shocks are dangerous because the current can cause ventricular fibrillation. Agarwal occur at the site of the shock, but these are treated in much the same way as thermal agarwal. Therefore, if the heart did not stop due to electrocution, the victim is usually treated as an outpatient. Call the doctor or return for examination at any time if there is numbness , increasing pain or swelling, or signs of infection. Drink plenty of fluids today. Take ibuprofen for pain as needed. Rest. Follow-up with your doctor if any ongoing problems. RETURN TO THE EMERGENCY ROOM IF ANY NEW OR WORSENING SYMPTOMS. Referrals: PATY ARELLANO MD [Primary Care Provider] - Follow up as needed Scribe Attestation: 08/08/18 13:32 I personally performed the services described in the documentation, reviewed and edited the documentation which was dictated to the scribe in my presence, and it accurately records my words and actions. (LINDY MAE) Scribe Documentation - Scribe Written by Daniel:: Daniel Varner, 08/08/2018 1510 acting as scribe for :: Ethel <NEO MERCHANT - Last Filed: 08/08/18 14:20>
[2018-08-08 12:48] LABS: ABSOLUTE EOSINOPHILS # (AUTO) 0.1 10^3/uL (0.0-0.6); ABSOLUTE LYMPHOCYTES (AUTO) 1.9 10^3/uL (0.5-4.7); ABSOLUTE MONOCYTES (AUTO) 0.4 10^3/uL (0.1-1.4); ABSOLUTE NEUT (AUTO) 3.2 10^3/uL (1.7-8.2); BASOPHILS % (AUTO) 0.5 % (0-2); HEMATOCRIT 41.5 % (37.9-51.0); HEMOGLOBIN 14.3 g/dL (13.5-17.0); LYMPHOCYTES % (AUTO) 34.4 % (13-45); MEAN CORPUSCULAR HEMOGLOBIN 32.4 pg (27.0-33.4); MEAN CORPUSCULAR HGB CONC 34.5 g/dL (32.0-36.0); MEAN CORPUSCULAR VOLUME 94 fl (80-97); MONOCYTES % (AUTO) 7.4 % (3-13); PLATELET COUNT 316 10^3/uL (150-450); RED BLOOD COUNT 4.42 10^6/uL (4.35-5.55); RED CELL DISTRIBUTION WIDTH 13.9 % (11.5-14.0); SEGMENTED NEUTROPHILS % (AUTO) 56.7 % (42-78); TOTAL CELLS COUNTED % (AUTO) 100 %; WHITE BLOOD COUNT 5.6 10^3/uL (4.0-10.5)
[2018-08-08 13:00] LABS: ALANINE AMINOTRANSFERASE 30 U/L (21-72); ALBUMIN 4.3 g/dL (3.5-5.0); ALKALINE PHOSPHATASE 90 U/L (38-126); ANION GAP 7 (5-19); ASPARTATE AMINO TRANSFERASE 33 U/L (17-59); BILIRUBIN,DIRECT 0.3 mg/dL (0.0-0.4); BILIRUBIN,TOTAL 0.5 mg/dL (0.2-1.3); BLOOD UREA NITROGEN 11 mg/dL (7-20); CALCIUM 9.5 mg/dL (8.4-10.2); CARBON DIOXIDE 24 mmol/L (22-30); CHLORIDE 110 mmol/L (98-107); CREATINE KINASE 280 U/L (55-170); GLUCOSE 96 mg/dL (75-110); POTASSIUM 4.6 mmol/L (3.6-5.0); SODIUM 141.4 mmol/L (137-145); TOTAL PROTEIN 7.5 g/dL (6.3-8.2)
[2018-08-08] MEDS ORDERED: NORMAL SALINE 1000 ML 1,000 ML IV ONE (13:06)
[2018-08-08 13:11] LABS: CREATINE KINASE MB 2.12 ng/mL (<4.55)
[2018-08-08 13:13] LABS: TROPONIN I < 0.012 ng/mL
[2018-08-08] MEDS ORDERED: OXYCODONE-ACETAMINOPHEN 5-325 MG TABLET PO ONE (13:25)
[2018-08-08 17:03] VITALS: BP 136/93
--- NOTE | 2018-08-08 22:34 | EKG REPORT ---
SEVERITY:- NORMAL ECG - SINUS RHYTHM : Confirmed by: Jennifer Mclaughlin MD 08-Aug-2018 22:32:59
== END 2018-08-08 17:17 | disposition home or self-care (01) ==
LOC: ER 12:06
DX: T75.4XXA Electrocution, initial encounter (principal); R07.9 Chest pain, unspecified; W86.0XXA Exposure to domestic wiring and appliances, initial encounter; Y92.009 Unspecified place in unspecified non-institutional (private) residence as the place of occurrence of the external cause; F17.210 Nicotine dependence, cigarettes, uncomplicated; I10 Essential (primary) hypertension; J44.9 Chronic obstructive pulmonary disease, unspecified
CPT/HCPCS: 93005; 99283; 96360; 96361; 36415; 82553; 82550; 85025; 80053; 84484; 93010; J7030

== ENCOUNTER → 2018-08-29 | Outpatient (CLI) | payer MEDICAID ==
[2018-08-31 12:37] LABS: ANTICHROMATIN AB <0.2 AI (0.0-0.9); CENTROMERE B AB <0.2 AI (0.0-0.9); JO-1 ANTIBODY (ANACOMP) <0.2 AI (0.0-0.9); SJOGREN'S ANTI-SS-B AB <0.2 AI (0.0-0.9); SJOGREN'S SS-A ANTIBODY <0.2 AI (0.0-0.9)
[2018-08-31 17:47] LABS: DNA DOUBLE STRAND ANTIBODY ANA 1 IU/mL (0-9)
[2018-09-03 19:36] LABS: ASPERGILLUS FLAVUS Negative (Neg:<1:1); ASPERGILLUS FUMIGATUS Negative (Neg:<1:1)
[2018-09-04 07:01] LABS: ASPERGILLUS NIGER Negative (Neg:<1:1)
== END ==
LOC: OD 16:22
PROVIDERS: ATTEND Internal Medicine Pulmonary Disease
DX: R06.00 Dyspnea, unspecified (principal)
CPT/HCPCS: 36415; 86225; 86235; 86606; 86698

== ENCOUNTER 2018-10-15 20:43 | Emergency (ER) | payer MEDICAID ==
--- NOTE | 2018-10-15 21:17 | RADIOLOGY REPORT (SQ) ---
EXAM DESCRIPTION: XR HAND 3 OR MORE VIEWS COMPLETED DATE/TME: 10/15/2018 00:00 CLINICAL HISTORY: 47 years, Male, puncture wound to palm Findings: Bony alignment is anatomic. No fracture or dislocation. Mild well corticated deformity of the fifth metacarpal consistent with old fracture. No radiopaque foreign body noted. IMPRESSION: No fracture or radiopaque foreign body.
[2018-10-15] MEDS ORDERED: DIPH/PERTUSS(ACELL)/TETANUS VAC/PF 0.5 ML SYR (>=10YO) IM ONE (21:47)
--- NOTE | 2018-10-15 21:54 | ER Document Report ---
HPI - HPI Patient complains to provider of: right hand injury Time Seen by Provider: 10/15/18 21:43 Pain Level: 4 Context: Patient is a 47-year-old male presents to the emergency department for a puncture wound to the anterior aspect of his right hand. Patient states he was working on a roof when his son threw him a broom that had a screw sticking out of it. States the screw went into the anterior aspect of his right palm. States he was able to remove the screw and does not think there are any foreign bodies. States he is not up-to-date on his tetanus. Past medical history: COPD Medications: None Allergies: Morphine, naproxen - MUSCULOSKELETAL Musculoskeletal: REPORTS: Extremity pain Past Medical History - General Information source: Patient - Social History Smoking Status: Current Every Day Smoker Family History: Reviewed & Not Pertinent, Arthritis, CAD, CVA, Hyperlipidemia, Hypertension, Other Patient has suicidal ideation: No Patient has homicidal ideation: No - Past Medical History Cardiac Medical History: Reports: Hx Hypercholesterolemia, Hx Hypertension Pulmonary Medical History: Reports: Hx Bronchitis, Hx COPD, Hx Pneumonia Denies: Hx Tuberculosis Renal/ Medical History: Reports: Hx Testicular Torsion. Denies: Hx Peritoneal Dialysis GI Medical History: Reports: Hx Gastroesophageal Reflux Disease, Hx Hiatal Hernia - repaired in 2000 & 09/2015 Musculoskeletal Medical History: Reports Hx Arthritis, Reports Hx Musculoskeletal Trauma Psychiatric Medical History: Reports: Hx Depression Traumatic Medical History: Reports: Hx Fractures - boxer Past Surgical History: Reports: Hx Abdominal Surgery - hiatal hernia repair 10 years ago and again on 10/07/2015, Hx Appendectomy - 2002, Hx Cholecystectomy - 2009, Hx Genitourinary Surgery - testicular torsion pexy 1984 - Immunizations Immunizations up to date: Yes Hx Diphtheria, Pertussis, Tetanus Vaccination: Yes - 2006 Vertical Provider Document - CONSTITUTIONAL Agree With Documented VS: Yes Notes: GENERAL: Alert, interacts well. No acute distress. HEAD: Normocephalic, atraumatic. EYES: Pupils equal, round, and reactive to light. Extraocular movements intact. ENT: Oral mucosa moist, tongue midline. NECK: Full range of motion. Supple. Trachea midline. LUNGS: Clear to auscultation bilaterally, no wheezes, rales, or rhonchi. No respiratory distress. HEART: Regular rate and rhythm. No murmur ABDOMEN: Soft, non-tender. Non-distended. Bowel sounds present in all 4 quadrants. EXTREMITIES: Moves all 4 extremities spontaneously. No edema, normal radial and dorsalis pedis pulses bilaterally. No cyanosis. Patient is able to abduct and adduct all fingers in the right hand against resistance. Patient is able to flex and extend all fingers on the right hands. Capillary refill less than 2 seconds all 5 distal fingers right hand. BACK: no cervical, thoracic, lumbar midline tenderness. No saddle anesthesia, normal distal neurovascular exam. NEUROLOGICAL: Alert and oriented x3. Normal speech. cranial nerves II through XII grossly intact. PSYCH: Normal affect, normal mood. SKIN: Warm, dry, normal turgor. small puncture wound noted to the middle of the anterior aspect of the right palm. - INFECTION CONTROL TRAVEL OUTSIDE OF THE [place] IN LAST 30 DAYS: No Course - Re-evaluation Re-evalutation: 10/15/18 21:52 Discussed antibiotic prophylaxis with patient at length. Patient states he works with his hands and he gets his hands dirty all day long. Patient wishes for antibiotics at this time. Discussed with him use of Keflex and keeping the wound clean tetanus immunization given in the emergency room. Patient is afebrile nontoxic, stable for discharge. Close return precautions discussed. 10/15/18 21:53 X-ray shows no signs of fracture, or foreign bodies. - Vital Signs Vital signs: Temp Pulse Resp BP Pulse Ox 98.4 F 80 16 124/80 95 10/15/18 20:52 10/15/18 20:52 10/15/18 20:52 10/15/18 20:52 10/15/18 20:52 Discharge - Discharge Clinical Impression: Puncture wound of right hand Qualifiers: Encounter type: initial encounter Foreign body presence: without foreign body Qualified Code(s): S61.431A - Puncture wound without foreign body of right hand , initial encounter Condition: Stable Disposition: HOME, SELF-CARE Instructions: Puncture Wound ([facility]), Tetanus Immunization Given ([facility]), Cephalexin ([facility]) Additional Instructions: As we discussed you have been seen and treated in the emergency department for a puncture wound to your right hand. Please take antibiotics as prescribed. Please keep the wound clean and dry. Please return to the emergency room or make an appointment with your primary care provider should the wound express discharge, get red or swollen or you have decreased range of motion of your right fingers. Please also return to the emergency room for any other concerning symptoms. Prescriptions: Cephalexin Monohydrate [Keflex 500 mg Capsule] 500 mg PO BID 7 Days #14 capsule Referrals: TIFFANY CHAVARRIA MD [Primary Care Provider] - Follow up as needed
[2018-10-15] MEDS ORDERED: CEPHALEXIN 500 MG CAPSULE PO ONE (21:55)
[2018-10-15] MEDS ORDERED: IBUPROFEN 800 MG TABLET PO ONE (21:55)
[2018-10-15 22:07] VITALS: BP 128/74
== END 2018-10-15 22:10 | disposition home or self-care (01) ==
LOC: ER 20:43
DX: S61.431A Puncture wound without foreign body of right hand, initial encounter (principal); W27.8XXA Contact with other nonpowered hand tool, initial encounter; Y93.89 Activity, other specified; J44.9 Chronic obstructive pulmonary disease, unspecified; F17.200 Nicotine dependence, unspecified, uncomplicated; I10 Essential (primary) hypertension; Z88.5 Allergy status to narcotic agent; Z88.8 Allergy status to other drugs, medicaments and biological substances
CPT/HCPCS: 99283; 90471; 73130; 90715; J3490

== ENCOUNTER 2018-11-15 12:48 | Emergency (ER) | payer MEDICAID ==
[2018-11-15 14:12] LABS: ABSOLUTE BASOPHILS # (AUTO) 0.1 10^3/uL (0.0-0.2); ABSOLUTE LYMPHOCYTES (AUTO) 1.8 10^3/uL (0.5-4.7); ABSOLUTE MONOCYTES (AUTO) 0.4 10^3/uL (0.1-1.4); ABSOLUTE NEUT (AUTO) 4.4 10^3/uL (1.7-8.2); BASOPHILS % (AUTO) 0.9 % (0-2); EOSINOPHILS % (AUTO) 0.4 % (0-6); HEMATOCRIT 42.4 % (37.9-51.0); HEMOGLOBIN 14.4 g/dL (13.5-17.0); LYMPHOCYTES % (AUTO) 26.8 % (13-45); MEAN CORPUSCULAR HEMOGLOBIN 31.9 pg (27.0-33.4); MEAN CORPUSCULAR VOLUME 94 fl (80-97); MONOCYTES % (AUTO) 6.3 % (3-13); PLATELET COUNT 316 10^3/uL (150-450); RED BLOOD COUNT 4.52 10^6/uL (4.35-5.55); RED CELL DISTRIBUTION WIDTH 14.2 % (11.5-14.0); SEGMENTED NEUTROPHILS % (AUTO) 65.6 % (42-78); TOTAL CELLS COUNTED % (AUTO) 100 %; WHITE BLOOD COUNT 6.8 10^3/uL (4.0-10.5)
[2018-11-15 14:31] LABS: ALANINE AMINOTRANSFERASE 20 U/L (21-72); ALBUMIN 4.6 g/dL (3.5-5.0); ALKALINE PHOSPHATASE 135 U/L (38-126); ANION GAP 7 (5-19); ASPARTATE AMINO TRANSFERASE 46 U/L (17-59); BILIRUBIN,DIRECT 0.3 mg/dL (0.0-0.4); BILIRUBIN,TOTAL 0.3 mg/dL (0.2-1.3); BLOOD UREA NITROGEN 13 mg/dL (7-20); CALCIUM 9.4 mg/dL (8.4-10.2); CARBON DIOXIDE 29 mmol/L (22-30); CHLORIDE 106 mmol/L (98-107); CREATINE KINASE 150 U/L (55-170); GLUCOSE 99 mg/dL (75-110); POTASSIUM 4.3 mmol/L (3.6-5.0); SODIUM 142.1 mmol/L (137-145); TOTAL PROTEIN 7.8 g/dL (6.3-8.2)
[2018-11-15] MEDS ORDERED: RINGERS SOLUTION,LACTATED 1,000 ML IV ONE (14:33)
[2018-11-15] MEDS ORDERED: MECLIZINE HCL 25 MG TABLET PO ONE (14:33)
[2018-11-15] MEDS ORDERED: DIPHENHYDRAMINE HCL 50 MG/ML VIAL IV ONE (14:35)
[2018-11-15] MEDS ORDERED: METOCLOPRAMIDE HCL INJ/PF 10 MG/2 ML SDV IV ONE (14:35)
--- NOTE | 2018-11-15 14:39 | ER Document Report ---
ED General - General Chief Complaint: Near Syncope Stated Complaint: DIZZY Time Seen by Provider: 11/15/18 14:12 Mode of Arrival: Ambulatory Information source: Patient, [facility] Records Notes: 47-year-old male with hypertension, hyperlipidemia, COPD, reflux, tobacco use presents via private vehicle with complaint of dizziness, lightheadedness and nausea that occurred just prior to arrival. 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 He states that a coworker prevented him from falling off of the stool he was standing on. Patient describes the dizziness as the room spinning. He denies any recent illness, preceding chest pain, shortness of breath. He does admit to a headache for 2 days. Headache is described as throbbing, across the front of his forehead. Patient does report ear ringing but states this is been present s nelia he fell in September which caused him to require sutures and he sustained a fracture of the right lower extremity. TRAVEL OUTSIDE OF THE [place] IN LAST 30 DAYS: No - HPI Onset: Just prior to arrival Onset/Duration: Sudden Quality of pain: Achy Severity: Mild Associated symptoms: Headache, Nausea, Other - Dizzy, lightheaded. denies: Body/muscle aches, Chest pain, Nonproductive cough, Productive cough, Fever, Vomiting, Shortness of breath Exacerbated by: Denies, Standing Similar symptoms previously: No Recently seen / treated by doctor: No - Related Data Allergies/Adverse Reactions: morphine [Morphine] Allergy (Intermediate, Verified 11/15/18 12:52) Hives naproxen [Naproxen] Adverse Reaction (Mild, Verified 11/15/18 12:52) Nausea Past Medical History - General Information source: Patient - Social History Smoking Status: Current Every Day Smoker Cigarette use (# per day): Yes - 10 Smoking Education Provided: Yes - Smoking cessation counseling was provided for 4 minutes at the bedside Frequency of alcohol use: Occasional Lives with: Family Family History: Reviewed & Not Pertinent, Arthritis, CAD, CVA, Hyperlipidemia, Hypertension, Other Patient has suicidal ideation: No Patient has homicidal ideation: No - Past Medical History Cardiac Medical History: Reports: Hx Hypercholesterolemia, Hx Hypertension Pulmonary Medical History: Reports: Hx Bronchitis, Hx COPD, Hx Pneumonia Denies: Hx Tuberculosis Renal/ Medical History: Reports: Hx Testicular Torsion. Denies: Hx Peritoneal Dialysis GI Medical History: Reports: Hx Gastroesophageal Reflux Disease, Hx Hiatal Hernia - repaired in 2000 & 09/2015 Musculoskeletal Medical History: Reports Hx Arthritis, Reports Hx Musculos keletal Trauma Psychiatric Medical History: Reports: Hx Depression Traumatic Medical History: Reports: Hx Fractures - boxer Past Surgical History: Reports: Hx Abdominal Surgery - hiatal hernia repair 10 years ago and again on 10/07/2015, Hx Appendectomy - 2002, Hx Cholecystectomy - 2009, Hx Genitourinary Surgery - testicular torsion pexy 1984 - Immunizations Immunizations up to date: Yes Hx Diphtheria, Pertussis, Tetanus Vaccination: Yes - 2006 Review of Systems - Review of Systems Notes: REVIEW OF SYSTEMS: CONSTITUTIONAL : Denies fever, chills, or sweats. Denies recent illness. Aramis es weight loss, recent hospitalizations. EENT: Denies visual changes, eye pain. Denies sore throat, oral lesions, difficulty swallowing. CARDIOVASCULAR: Denies chest pain. Denies palpitations. Denies lower extremity edema. RESPIRATORY: Denies cough. Denies shortness of breath, wheezing. GASTROINTESTINAL: Denies abdominal pain or distention. Denies vomiting, or diarrhea. Denies blood in vomitus, stools, or per rectum. Denies black, tarry stools. Denies constipation. GENITOURINARY: Denies difficulty urinating, painful urination, frequency, blood in urine, testicular pain or penile discharge. MUSCULOSKELETAL: Denies back or neck pain or stiffness. Denies joint pain or swelling. SKIN: Denies rash, lesions or sores. HEMATOLOGIC : Denies easy bruising or bleeding. LYMPHATIC: Denies swollen glands. NEUROLOGICAL: Denies confusion or altered mental status. Denies loss of c onsciousness. Denies weakness or paralysis. Denies problems difficulty with ambulation, slurred speech. Denies sensory loss, numbness, or tingling. Denies seizures. PSYCHIATRIC: Denies anxiety or stress. Denies depression, suicidal ideation, or Physical Exam - Vital signs Vitals: Temp Pulse Resp BP Pulse Ox 98.8 F 79 18 150/97 H 100 11/15/18 13:00 11/15/18 13:00 11/15/18 13:00 11/15/18 13:00 11/15/18 13:00 - Notes Notes: PHYSICAL EXAMINATION: GENERAL: Well-appearing, well-nourished and in no acute distress. HEAD: Atraumatic, normocephalic. EYES: Pupils equal round and reactive to light, extraocular movements intact, sclera anicteric, conjunctiva are normal. Left-sided nystagmus ENT: Nares patent, oropharynx clear without exudates. Moist mucous membranes. Left ear with [address] NECK: Normal range of motion, supple without lymphadenopathy LUNGS: Breath sounds clear to auscultation bilaterally and equal. No wheezes rales or rhonchi. HEART: Regular rate and rhythm without murmurs ABDOMEN: Soft, nontender, nondistended abdomen. No guarding, no rebound. No masses appreciated. Musculoskeletal: Normal range of motion, no pitting or edema. No cyanosis. NEUROLOGICAL: Cranial nerves grossly intact. Normal speech, normal gait. Normal sensory, motor exams PSYCH: Normal mood, normal affect. SKIN: Warm, Dry, normal turgor, no rashes or lesions noted. Course - Re-evaluation Re-evalutation: Laboratory 11/15/18 11/15/18 11/15/18 13:25 13:25 13:25 WBC 6.8 RBC 4.52 Hgb 14.4 Hct 42.4 MCV 94 MCH 31.9 MCHC 34.0 RDW 14.2 H Plt Count 316 Seg Neutrophils % 65.6 Lymphocytes % 26.8 Monocytes % 6.3 Eosinophils % 0.4 Basophils % 0.9 Absolute Neutrophils 4.4 Absolute Lymphocytes 1.8 Absolute Monocytes 0.4 Absolute Eosinophils 0.0 Absolute Basophils 0.1 Sodium 142.1 Potassium 4.3 Chloride 106 Carbon Dioxide 29 Anion Gap 7 BUN 13 Creatinine 0.83 Est GFR ( Amer) > 60 Est GFR (Non-Af Amer) > 60 Glucose 99 Calcium 9.4 Magnesium Total Bilirubin 0.3 Direct Bilirubin 0.3 Neonat Total Bilirubin Not Reportable Neonat Direct Bilirubin Not Reportable Neonat Indirect Bili Not Reportable AST 46 ALT 20 L Alkaline Phosphatase 135 H Creatine Kinase 150 CK-MB (CK-2) 1.28 Troponin I < 0.012 Total Protein 7.8 Albumin 4.6 Urine Color Urine Appearance Urine pH Ur Specific [place] Urine Protein Urine Glucose (UA) Urine Ketones Urine Blood Urine Nitrite Urine Bilirubin Urine Urobilinogen Ur Leukocyte Esterase Urine WBC (Auto) Urine Mucus (Auto) Urine Ascorbic Acid Urine Opiates Screen Urine Methadone Screen Ur Barbiturates Screen Ur Phencyclidine Scrn Ur Amphetamines Screen U Benzodiazepines Scrn Urine Cocaine Screen U Marijuana (THC) Screen 11/15/18 11/15/18 11/15/18 15:04 15:22 16:35 WBC RBC Hgb Hct MCV MCH MCHC RDW Plt Count Seg Neutrophils % Lymphocytes % Monocytes % Eosinophils % Basophils % Absolute Neutrophils Absolute Lymphocytes Absolute Monocytes Absolute Eosinophils Absolute Basophils Sodium Potassium Chloride Carbon Dioxide Anion Gap BUN Creatinine Est GFR ( Amer) Est GFR (Non-Af Amer) Glucose Calcium Magnesium 2.3 Total Bilirubin Direct Bilirubin Neonat Total Bilirubin Neonat Direct Bilirubin Neonat Indirect Bili AST ALT Alkaline Phosphatase Creatine Kinase CK-MB (CK-2) Troponin I Total Protein Albumin Urine Color COLORLESS Urine Appearance CLEAR Urine pH 7.0 Ur Specific [place] 1.004 Urine Protein NEGATIVE Urine Glucose (UA) NEGATIVE Urine Ketones NEGATIVE Urine Blood NEGATIVE Urine Nitrite NEGATIVE Urine Bilirubin NEGATIVE Urine Urobilinogen NEGATIVE Ur Leukocyte Esterase NEGATIVE Urine WBC (Auto) 1 Urine Mucus (Auto) RARE Urine Ascorbic Acid NEGATIVE Urine Opiates Screen NEGATIVE Urine Methadone Screen NEGATIVE Ur Barbiturates Screen NEGATIVE Ur Phencyclidine Scrn NEGATIVE Ur Amphetamines Screen NEGATIVE U Benzodiazepines Scrn NEGATIVE Urine Cocaine Screen NEGATIVE U Marijuana (THC) Screen UNCONFIRMED POSITIVE Chest X-Ray 11/15/18 15:22 IMPRESSION: NO ACUTE RADIOGRAPHIC FINDING IN THE CHEST. Temp Pulse Resp BP Pulse Ox 98.8 F 79 19 124/82 97 11/15/18 13:00 11/15/18 13:00 11/15/18 16:01 11/15/18 16:00 11/15/18 16:01 47-year-old male with hypertension, hyperlipidemia, COPD, reflux, tobacco use presents via private vehicle with complaint of dizziness, lightheadedness and nausea that occurred just prior to arrival. 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 He states that a coworker prevented him from falling off of the stool he was standing on. Patient describes the dizziness as the room spinning. Vital signs reviewed and within normal limits upon arrival. Patient does not appear toxic or dehydrated. He is in no acute distress. Patient has a normal neurologic and physical exam. EKG was obtained which showed the patient to be in normal sinus rhythm at a rate of 60. QTc 440. No significant change from previous EKG found. CBC, CMP, cardiac enzymes are within normal limits. Urine drug screen positive for marijuana. Exam is consistent with benign positional vertigo. Have low suspicion for acute stroke, ACS. 11/15/18 16:55 Patient reevaluated after receiving IV fluids, meclizine and he reports resolution of his dizziness and states that he feels a lot better. 11/15/18 16:55 Patient was evaluated and treated as appropriate for the patient's presenting symptoms and complaint, with consideration of any critical or life threatening conditions that may be associated with their obtained history and exam as noted above. All results were discussed with patient. Patient provided the opportunity to ask questions, and express concerns. Patient was educated on treatments based on their presumed diagnosis as noted above. At this time we will disch arge the patient with return precautions and follow-up recommendations. Verbal discharge instructions given a the bedside. Medication warnings reviewed. Patient is in agreement with this plan and has verbalized understanding of return precautions. After careful consideration I feel that that patient can be safely discharged from the emergency department, they were advised to followup with a primary care physician in 2-3 days. Dictation on this chart was performed using voice recognition software and may result in unintended grammatical, spelling, syntax or errors. 11/15/18 17:00 - Vital Signs Vital signs: Temp Pulse Resp BP Pulse Ox 98.8 F 79 19 124/82 97 11/15/18 13:00 11/15/18 13:00 11/15/18 16:01 11/15/18 16:00 11/15/18 16:01 - Laboratory Result Diagrams: 11/15/18 13:25 11/15/18 13:25 Laboratory results interpreted by me: 11/15/18 11/15/18 13:25 13:25 RDW 14.2 H ALT 20 L Alkaline Phosphatase 135 H - Diagnostic Test Radiology reviewed: Image reviewed, Reports reviewed - EKG Interpretation by Me EKG shows normal: Sinus rhythm Rate: Normal Rhythm: NSR When compared to previous EKG there are: No significant change Discharge - Discharge Clinical Impression: Dizziness, Tobacco use, History of COPD, Vertigo Condition: Good Disposition: HOME, SELF-CARE Instructions: Vertigo ([facility]), Dizziness ([facility]) Additional Instructions: You were seen today for lightheadedness/dizziness. The exact cause of your symptoms is unclear but your workup here is reassuring without any concerning findings. Please follow closely with your primary care physician in the next 1- 3 days. Return if you pass out, have additional episodes of lightheadedness, develop weakness/numbness, have persistent vomiting, chest pain, shortness of breath or any other symptoms that are concerning to you Prescriptions: Meclizine HCl 25 mg PO Q8H PRN #12 tab.chew PRN Reason: Dizziness Forms: Smoking Cessation Education
[2018-11-15 14:41] LABS: CREATINE KINASE MB 1.28 ng/mL (<4.55)
[2018-11-15 14:44] LABS: TROPONIN I < 0.012 ng/mL
--- NOTE | 2018-11-15 16:03 | RADIOLOGY REPORT (SQ) ---
EXAM DESCRIPTION: CHEST 2 VIEWS COMPLETED DATE/TIME: 11/15/2018 3:53 pm REASON FOR STUDY: palpitations COMPARISON: 11/22/2017. EXAM PARAMETERS: NUMBER OF VIEWS: two views TECHNIQUE: Digital Frontal and Lateral radiographic views of the chest acquired. RADIATION DOSE: NA LIMITATIONS: none FINDINGS: LUNGS AND PLEURA: No opacities, masses or pneumothorax. No pleural effusion. MEDIASTINUM AND HILAR STRUCTURES: No masses or contour abnormalities. HEART AND VASCULAR STRUCTURES: Heart normal size. No evidence for failure. BONES: No acute findings. HARDWARE: None in the chest. OTHER: No other significant finding. IMPRESSION: NO ACUTE RADIOGRAPHIC FINDING IN THE CHEST. TECHNICAL DOCUMENTATION: JOB ID: [id number] [employer]- All Rights Reserved Reading location - IP/workstation name: [email or web address]
[2018-11-15 16:27] LABS: URINE AMPHETAMINES SCREEN NEGATIVE; URINE BARBITURATES SCREEN NEGATIVE; URINE BENZODIAZEPINES SCREEN NEGATIVE; URINE COCAINE SCREEN NEGATIVE; URINE MARIJUANA (THC) SCREEN UNCONFIRMED POSITIVE; URINE METHADONE SCREEN NEGATIVE; URINE PHENCYCLIDINE SCREEN NEGATIVE
[2018-11-15 16:45] LABS: APPEARANCE,URINE CLEAR; BILIRUBIN,URINE NEGATIVE (NEGATIVE); COLOR,URINE COLORLESS; GLUCOSE, URINE NEGATIVE (NEGATIVE); KETONES,URINE NEGATIVE (NEGATIVE); LEUKOCYTE ESTERASE,URINE NEGATIVE (NEGATIVE); NITRITE,URINE NEGATIVE (NEGATIVE); PROTEIN,URINE NEGATIVE (NEGATIVE); URINE SPECIFIC GRAVITY 1.004; UROBILINOGEN,URINE NEGATIVE mg/dL (<2.0)
[2018-11-15 17:15] VITALS: BP 140/88
--- NOTE | 2018-11-15 20:57 | EKG REPORT ---
SEVERITY:- NORMAL ECG - SINUS RHYTHM : Confirmed by: Rossana Roman 15-Nov-2018 20:56:47
== END 2018-11-15 17:04 | disposition home or self-care (01) ==
LOC: ER 12:48
DX: R42 Dizziness and giddiness (principal); R51 Headache; H93.19 Tinnitus, unspecified ear; H55.00 Unspecified nystagmus; I10 Essential (primary) hypertension; J44.9 Chronic obstructive pulmonary disease, unspecified; R11.0 Nausea; Z88.5 Allergy status to narcotic agent; F17.210 Nicotine dependence, cigarettes, uncomplicated; Z71.6 Tobacco abuse counseling
CPT/HCPCS: 93005; 99406; 99284; 96374; 96375; 36415; 82553; 82550; 83735; 85025; 80053; 81001; 84484; 80307; 71046; 93010; J1200; J2765; J7120

== ENCOUNTER 2018-12-08 15:07 | Emergency (ER) | payer MEDICAID ==
[2018-12-08 15:14] VITALS: BP 144/97
--- NOTE | 2018-12-08 15:39 | ER Document Report ---
HPI - HPI Time Seen by Provider: 12/08/18 15:25 Pain Level: 4 Notes: Patient is a 48-year-old male who presents emergency department complaining of increased right knee pain and giving way of his knee over the last several days. Patient states that he was injured his knee in September and was seen at [facility] for it. Patient states he believes something was broken in there, but has not been seen by orthopedic and has been walking on it since then. Pain does not radiate. Patient states that he has noticed occasional swelling. No other concerns or complaints. He is urinating normally and having normal bowel movements. Denies any headache, fever, URI, sore throat, chest pain, palpitations, syncope, cough, shortness of breath, wheeze, dyspnea, abdominal pain, nausea/vomiting/diarrhea, urinary retention, dysuria, hematuria, loss of control of bowel or bladder, numbness/tingling, saddle anesthesia, muscle paralysis/weakness, or rash. - ROS Systems Reviewed and Negative: Yes All other systems reviewed and negative Past Medical History - Social History Smoking Status: Current Every Day Smoker Family History: Reviewed & Not Pertinent, Arthritis, CAD, CVA, Hyperlipidemia, Hypertension, Other - Past Medical History Cardiac Medical History: Reports: Hx Hypercholesterolemia, Hx Hypertension Pulmonary Medical History: Reports: Hx Bronchitis, Hx COPD, Hx Pneumonia Denies: Hx Tuberculosis Renal/ Medical History: Reports: Hx Testicular Torsion. Denies: Hx Peritoneal Dialysis GI Medical History: Reports: Hx Gastroesophageal Reflux Disease, Hx Hiatal Hernia - repaired in 2000 & 09/2015 Musculoskeletal Medical History: Reports Hx Arthritis, Reports Hx Musculoskeletal Trauma Psychiatric Medical History: Reports: Hx Depression Traumatic Medical History: Reports: Hx Fractures - boxer Past Surgical History: Reports: Hx Abdominal Surgery - hiatal hernia repair 10 years ago and again on 10/07/2015, Hx Appendectomy - 2002, Hx Cholecystectomy - 2009, Hx Genitourinary Surgery - testicular torsion pexy 1984 - Immunizations Immunizations up to date: Yes Hx Diphtheria, Pertussis, Tetanus Vaccination: Yes - 2006 Vertical Provider Document - CONSTITUTIONAL Agree With Documented VS: Yes Notes: PHYSICAL EXAMINATION: GENERAL: Well-appearing, well-nourished and in no acute distress. LUNGS: Breath sounds clear to auscultation bilaterally and equal. No wheezes rales or rhonchi. HEART: Regular rate and rhythm without murmurs, rubs, gallops. Musculoskeletal: Rt knee: No obvious swelling, ecchymosis, effusion, or deformity. FROM to passive/active. Strength 5+/5. N/V intact distal. + tenderness to the medial knee to palp. Pt would not allow for adequate ligament/cartilage testing. No calf tenderness. Extremities: No cyanosis, clubbing, or edema b/l. Peripheral pulses 2+. Capillary refill less than 3 seconds. Maximus neg b/l. NEUROLOGICAL: Normal speech, limping gait. Normal sensory, motor exams PSYCH: Normal mood, normal affect. SKIN: Warm, Dry, normal turgor, no rashes or lesions noted. - INFECTION CONTROL TRAVEL OUTSIDE OF THE [place] IN LAST 30 DAYS: No Course - Re-evaluation Re-evalutation: 12/08/18 15:40 I spoke with a provider at [facility]. Pt was evaluated by Orthopedics 10/25, given a hinge brace, and told to f/u as well as have P.T. Pt has not f/u'd and has not been to P.T. He had cortical irregularity at the medial femoral condyle, possible fracture. Patient is an afebrile, well-hydrated, 48-year-old male who presents to the ED with Rt knee pain. Vitals are acceptable without any significant tachycardia, tachypnea, or hypoxia. PE is otherwise unremarkable for any neurovascular compromise, obvious fracture/dislocation, septic joint. Knee immobilizer provided today. Patient is nontoxic-appearing. Patient is able to ambulate and weight-bear although he is limping. No other labs or imaging warranted at this time based on H&P. Conservative measures otherwise for symptoms. Recheck with your PCM in 3-5 days. Schedule consult with orthopedics. Return to the ED with any worsening/concerning symptoms otherwise as reviewed in discharge. Patient is in agreement. - Vital Signs Vital signs: Temp Pulse Resp BP Pulse Ox 98.2 F 78 18 144/97 H 98 12/08/18 15:13 12/08/18 15:13 12/08/18 15:13 12/08/18 15:13 12/08/18 15:13 Discharge - Discharge Clinical Impression: Right knee pain Qualifiers: Chronicity: acute Qualified Code(s): M25.561 - Pain in right knee Condition: Stable Disposition: HOME, SELF-CARE Additional Instructions: Rest, Ice, Compression, Elevation Use crutches/splint as directed Tylenol/ibuprofen as needed F/u with your PCP in 3-5 days for a recheck Call orthopedics tomorrow to schedule an appointment for further evaluation and management Return to the ED with any worsening symptoms and/or development of fever, headache, chest pain, palpitations, syncope, shortness of breath, trouble breathing, abdominal pain, n/v/d, muscle weakness/paralysis, numbness/tingling, swelling, redness, or other worsening symptoms that are concerning to you. Forms: Elevated Blood Pressure, Smoking Cessation Education Referrals: [facility] [Provider Group] - Follow up as needed
== END 2018-12-08 15:46 | disposition home or self-care (01) ==
LOC: ER 15:07
DX: M25.561 Pain in right knee (principal); I10 Essential (primary) hypertension; J44.9 Chronic obstructive pulmonary disease, unspecified; F17.200 Nicotine dependence, unspecified, uncomplicated
CPT/HCPCS: 99283; L1830

== ENCOUNTER → 2018-12-31 | Outpatient (CLI) | payer MEDICAID ==
--- NOTE | 2018-12-31 19:57 | RADIOLOGY REPORT (SQ) ---
EXAM DESCRIPTION: CT CHEST WITHOUT COMPLETED DATE/TIME: 12/31/2018 7:13 pm REASON FOR STUDY: J84.9 INTERSTITIAL PULMONARY DISEASE, UNSPECIFIED J84.9 INTERSTITIAL PULMONARY DI SEASE, UNSPECIFIED COMPARISON: 08/30/2016 TECHNIQUE: CT scan performed of the chest without intravenous contrast. Images reviewed with lung, soft tissue and bone windows. Reconstructed coronal and sagittal MPR images reviewed. All images st ored on PACS. All CT scanners at this facility use dose modulation, iterative reconstruction, and/or weight based d osing when appropriate to reduce radiation dose to as low as reasonably achievable (ALARA). [facility]: Dose Right [facility]: CareDose [facility]: Dose Right [facility]: Teradose 4D [facility]: ClearMyMail RADIATION DOSE: CT Rad equipment meets quality standard of care and radiation dose reduction techniq ues were employed. CTDIvol: 11.6 mGy. DLP: 477 mGy-cm. mGy. LIMITATIONS: No technical limitations. FINDINGS: LUNGS AND PLEURA: Paraseptal emphysematous changes predominantly in the upper lobes. Thes e findings have increased since the earlier study. No significant interstitial changes are appreciat ed. HILAR AND MEDIASTINAL STRUCTURES: There are some nonspecific mediastinal nodes. HEART AND VASCULAR STRUCTURES: No aneurysm. No pericardial effusion. UPPER ABDOMEN: No significant findings. Limited exam. THYROID AND OTHER SOFT TISSUES: No masses. No adenopathy. BONES: No significant finding. HARDWARE: None in the chest. OTHER: No other significant findings. IMPRESSION: Mild to moderate paraseptal pulmonary emphysema. Findings have increased since the prio r study. TECHNICAL DOCUMENTATION: JOB ID: [id number] Quality ID # [id number]: Final reports with documentation of one or more dose reduction techniques (e.g., Au tomated exposure control, adjustment of the mA and/or kV according to patient size, use of iterative reconstruction technique) 2010 [employer]- All Rights Reserved Reading location - IP/workstation name: [email or web address]
== END ==
LOC: RAD 19:29
PROVIDERS: ATTEND Internal Medicine Pulmonary Disease
DX: J84.9 Interstitial pulmonary disease, unspecified (principal)
CPT/HCPCS: 71250

== ENCOUNTER 2019-02-11 15:41 | Emergency (ER) | payer MEDICAID ==
--- NOTE | 2019-02-11 17:21 | ER Document Report ---
ED Extremity Problem, Lower - General Chief Complaint: Knee Pain Stated Complaint: FALL/KNEE PAIN Time Seen by Provider: 02/11/19 17:03 Primary Care Provider: [facility] [Provider Group] - Follow up as needed Mode of Arrival: Wheelchair Information source: Patient Notes: 48-year-old male presents to ED for complaint of right knee pain. He states he fell about 3:15 PM today at a friend's house landing on his right knee. He had a knee injury and September and then had another knee injury November 2018 and has been seen by orthopedic recently and is scheduled to start physical therapy on the 24 of this month. Patient is alert oriented respirations regular and unlabored speaking in full sentences. He states that he has quit taking ibuprofen and Tylenol over 2 weeks ago because he does not think it does him any good. So he is not taking any kind of pain medication. He has refused Tylenol or Motrin at this time. He has accepted an ice pack and one has been ordered and given to him. TRAVEL OUTSIDE OF THE [place] IN LAST 30 DAYS: No - HPI Patient complains to provider of: Injury, Pain Location: Knee - Right Occurred: Just prior to arrival Where: Other - Friend's house Onset/Duration: Persistent - Patient has had pain in this knee since September 2018 and has been seen multiple times for pain to this knee with x-rays and MRI Quality of pain: Sharp Severity: Severe Pain Level: 5 Context: Fell Recent injury: Possibly Associated symptoms: Painful ambulation Exacerbated by: Hanging down, Movement, Walking Relieved by: Nothing - Related Data Allergies/Adverse Reactions: morphine [Morphine] Allergy (Intermediate, Verified 11/15/18 12:52) Hives naproxen [Naproxen] Adverse Reaction (Mild, Verified 11/15/18 12:52) Nausea Past Medical History - General Information source: Patient - Social History Smoking Status: Current Every Day Smoker Cigarette use (# per day): Yes - 1/2 pack/day Chew tobacco use (# tins/day): No Smoking Education Provided: Yes - 4 minutes Frequency of alcohol use: Rare Drug Abuse: None Lives with: Friend Family History: Reviewed & Not Pertinent, Arthritis, CAD, CVA, Hyperlipidemia, Hypertension, Other Patient has suicidal ideation: No Patient has homicidal ideation: No - Past Medical History Cardiac Medical History: Reports: Hx Hypercholesterolemia, Hx Hypertension Pulmonary Medical History: Reports: Hx Bronchitis, Hx COPD, Hx Pneumonia EENT Medical History: Reports: None Neurological Medical History: Reports: None Endocrine Medical History: Reports: None Renal/ Medical History: Reports: Hx Testicular Torsion Malignancy Medical History: Reports None GI Medical History: Reports: Hx Gastroesophageal Reflux Disease, Hx Hiatal Hernia - repaired in 2000 & 09/2015 Musculoskeletal Medical History: Reports Hx Arthritis, Reports Hx Musculoskeletal Deformity, Reports Hx Musculoskeletal Trauma Skin Medical History: Reports None Psychiatric Medical History: Reports: Hx Depression Traumatic Medical History: Reports: Hx Fractures - boxer Infectious Medical History: Reports: None Past Surgical History: Reports: Hx Abdominal Surgery - hiatal hernia repair 10 years ago and again on 10/07/2015, Hx Appendectomy - 2002, Hx Cholecystectomy - 2009, Hx Genitourinary Surgery - testicular torsion pexy 1984 - Immunizations Immunizations up to date: Yes Hx Diphtheria, Pertussis, Tetanus Vaccination: Yes - 2006 Review of Systems - Review of Systems Constitutional: No symptoms reported EENT: No symptoms reported Cardiovascular: No symptoms reported Respiratory: No symptoms reported Gastrointestinal: No symptoms reported Genitourinary: No symptoms reported Male Genitourinary: No symptoms reported Musculoskeletal: Joint pain - Right knee pain. denies: Joint swelling Skin: No symptoms reported Hematologic/Lymphatic: No symptoms reported Neurological/Psychological: No symptoms reported -: Yes All other systems reviewed and negative Physical Exam - Vital signs Vitals: Temp Pulse Resp BP Pulse Ox 97.8 F 77 18 146/99 H 97 02/11/19 16:08 02/11/19 16:08 02/11/19 16:08 02/11/19 16:08 02/11/19 16:08 Interpretation: Normal - General General appearance: Appears well, Alert - HEENT Head: Normocephalic, Atraumatic Eyes: Normal Pupils: PERRL - Respiratory Respiratory status: No respiratory distress Chest status: Nontender Breath sounds: Normal Chest palpation: Normal - Cardiovascular Rhythm: Regular Heart sounds: Normal auscultation Murmur: No - Abdominal Inspection: Normal Distension: No distension Bowel sounds: Normal Tenderness: Nontender Organomegaly: No organomegaly - Back Back: Normal, Nontender - Extremities General upper extremity: Normal inspection, Nontender, Normal color, Normal ROM, Normal temperature General lower extremity: Normal inspection, Normal color, Normal ROM, Normal temperature Knee: Tender, Pain with ROM, Tender joint line. No: Abrasion, Deformity, Dislocation, Drawer's test instability, Ecchymosis, Instability, Joint effusion, Laceration, Laxity with valgus stress, Laxity with varus stress, Patellar tendon intact, Popliteal fossa tender, Unable to bear weight - Neurological Neuro grossly intact: Yes Cognition: Normal Orientation: AAOx4 [place] Coma Scale Eye Opening: Spontaneous [place] Coma Scale Verbal: Oriented Priya Coma Scale Motor: Obeys Commands Priya Coma Scale Total: 15 Speech: Normal Motor strength normal: LUE, RUE, LLE, RLE Sensory: Normal - Psychological Associated symptoms: Normal affect, Normal mood - Skin Skin Temperature: Warm Skin Moisture: Dry Skin Color: Normal Course - Re-evaluation Re-evalutation: 02/11/19 22:01 Patient stated that his pain was such that he needed some narcotics. 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 Patient stated that he would like to have the [place] and then after I left the room he decided he did not want to wait around and would like to go home. His x-rays were negative. Instructed patient on use of elevation ice ibuprofen Tylenol and to follow-up with his physical therapy and mri specialist as previously instructed. Patient verbalized understanding and agreement with treatment plan and was discharged home. - Vital Signs Vital signs: Temp Pulse Resp BP Pulse Ox 97.8 F 72 18 159/106 H 98 02/11/19 16:08 02/11/19 18:53 02/11/19 18:53 02/11/19 18:53 02/11/19 18:53 - Diagnostic Test Radiology reviewed: Image reviewed, Reports reviewed Discharge - Discharge Clinical Impression: Exacerbation of chronic right knee pain Condition: Stable Disposition: HOME, SELF-CARE Additional Instructions: CONTUSION: Your injury has resulted in a contusion -- a crushing of the deep tissues. No injury to important structures was detected during the physician's exam. Contusions vary in the amount of pain they cause, and in the length of time required for healing. Typically, the area will become bruised, and will remain painful to touch for two or three weeks. However, most patients are back to working and playing within a few days. After the initial period of rest and cold-packs, your symptoms (together w ith the doctor's recommendations) will determine how rapidly you can get back to full activity. Usually this means "do what feels okay, but don't do things that hurt." If re-examination was recommended, it's important to follow up as instructed. Call the doctor or return any time if pain increases, if swelling becomes severe, if you develop numbness or weakness in an injured extremity, or if any other alarming symptoms occur. USE OF TYLENOL (ACETAMINOPHEN): Acetaminophen may be taken for pain relief or fever control. It's much safer than aspirin, offering a wider range of "safe" dosages. It is safe during . Some brand names are Tylenol, Panadol, Datril, Anacin 3, Tempra, and Liquiprin. Acetaminophen can be repeated every four hours. The following are maximum recommended dosages: WEIGHT Dose Drops Elixir Chewable(80mg) (LBS.) drprs=droppers tsp=teaspoon 6 40 mg 0.4 ml (1/2) 6-11 80 mg 0.8 ml (full) tsp 1 tab 12-16 120 mg 1 1/2 drprs 3/4 tsp 1 1/2 tabs 17-23 160 mg 2 drprs 1 tsp 2 tabs 24-30 240 mg 3 drprs 1 1/2 tsp 3 tabs 30-35 320 mg 2 tsp 4 tabs 36-41 360 mg 2 1/4 tsp 4 1/2 tabs 42-47 400 mg 2 1/2 tsp 5 tabs 48-53 480 mg 3 tsp 6 tabs 54-59 520 mg 3 1/4 tsp 6 1/2 tabs 60-64 560 mg 3 1/2 tsp 7 tabs 65-70 600 mg 3 3/4 tsp 7 1/2 tabs 71-76 640 mg 4 tsp 8 tabs 77-82 720 mg 4 1/2 tsp 9 tabs 83-88 800 mg 5 tsp 10 tabs >89 pounds or adults 650 mg to 900 mg Acetaminophen can be repeated every four hours. Maximum dose not to exceed 4000 mg a day. These maximum recommended dosages are slightly higher than the dosages written on the product container, but these dosages are very safe and below the toxic dosage for acetaminophen. Ice & Elevation Apply ice packs frequently against the painful area. Many different schedules are recommended, such as "20 minutes on, 20 minutes off" or "one hour ice, two hours rest." If you need to work, you may need to go longer between ice treatments. You should plan to have the area ice packed AT LEAST one-fourth of the time. The ice should be applied over the wrap, tape, or splint, or over a layer of cloth -- not directly against the skin. Some ice bags have a built-in cloth and can be put directly on the skin. Your injured part should be elevated as much as possible over the next 48 hours. Try to keep the injury above the level of the heart. Avoid use of the injured area. Elevation and rest will decrease the swelling. Ibuprofen Ibuprofen is an excellent, safe drug for pain control. In addition, it has potent antiinflammatory effects which are beneficial, especially in the treatment of injuries, arthritis, or tendonitis. It's best to take ibuprofen with food. Persons with ulcer disease or allergy to aspirin should notify their physician of this before taking ibuprofen. Take the medication exactly as prescribed. Don't take additional doses unless instructed to do so by your doctor. If you develop wheezing, shortness of breath, hives, faintness, stomach pain, vomiting, or dark black stools, return for re-evaluation at once. Continue to wear your brace and your usual crutches until you follow-up with your physical therapy and your orthopedic surgeon Buffered you one Percocet while in the emergency room and at first she stated you would like the Percocet and then you decide you did not want to wait for the Percocet you would rather go home. Knee Exercise Program It's important to strengthen the muscles around the knee. This protects the injured area and stabilizes a knee that's been loosened by ligament injury. EARLY - Even when motion of the knee is painful (even when wearing a splint), you can begin isometric "quads" exercises. While sitting, hold the knee out, and contract the muscles to stiffen it. It shouldn't be straightened all the way -- stiffen it in a slightly-bent position. Lift the leg and draw a "T" with your foot, up to 100 times. When it becomes easy, add a weight on your foot. LATE - When the doctor advises you, you can begin moving the knee against resistance. The front muscles (quadriceps) are most important. While sitting at a [employer], straighten the knee forcefully while pushing a weight up with your ankle. Start with five to 10 pounds. Do 10 to 20 repetitions, increasing the weight as tolerated. Don't use more weight than is comfortable! Over a few weeks, work up to 35 to 50 pounds. Athletes should try to reach 70 to 90 pounds. FOLLOW-UP CARE: If you have been referred to a physician for follow-up care, call the physicians office for an appointment as you were instructed or within the next two days. If you experience worsening or a significant change in your symptoms, notify the physician immediately or return to the Emergency Department at any time for re-evaluation. Forms: Elevated Blood Pressure, Smoking Cessation Education, Return to Work Referrals: [facility] [Provider Group] - Follow up as needed
--- NOTE | 2019-02-11 18:08 | RADIOLOGY REPORT (SQ) ---
EXAM DESCRIPTION: KNEE RIGHT 4 VIEWS COMPLETED DATE/TIME: 02/11/2019 5:40 pm REASON FOR STUDY: hx right knee pain, fall COMPARISON: None. NUMBER OF VIEWS: Four views. TECHNIQUE: AP, lateral, and both oblique radiographic images acquired of the right knee. LIMITATIONS: None. FINDINGS: MINERALIZATION: Normal. BONES: No acute fracture or dislocation. No worrisome bone lesions. JOINT: No effusion. SOFT TISSUES: No soft tissue swelling. No radio-opaque foreign body. OTHER: No other significant finding. IMPRESSION: NEGATIVE STUDY OF THE RIGHT KNEE. NO RADIOGRAPHIC EVIDENCE OF ACUTE INJURY. TECHNICAL DOCUMENTATION: JOB ID: [id number] [employer]- All Rights Reserved Reading location - IP/workstation name: [email or web address]
[2019-02-11 18:54] VITALS: BP 159/106
== END 2019-02-11 18:53 | disposition home or self-care (01) ==
LOC: ER 15:41
DX: M25.561 Pain in right knee (principal); W19.XXXA Unspecified fall, initial encounter; Y92.008 Other place in unspecified non-institutional (private) residence as the place of occurrence of the external cause; G89.29 Other chronic pain; I10 Essential (primary) hypertension; J44.9 Chronic obstructive pulmonary disease, unspecified; F17.210 Nicotine dependence, cigarettes, uncomplicated; Z71.6 Tobacco abuse counseling; Z88.5 Allergy status to narcotic agent
CPT/HCPCS: 99283; 99406

== ENCOUNTER 2019-03-27 17:26 | Emergency (ER) | payer MEDICAID ==
[2019-03-27] MEDS ORDERED: DIPH/PERTUSS(ACELL)/TETANUS VAC/PF 0.5 ML SYR (>=10YO) IM ONE (17:46)
--- NOTE | 2019-03-27 17:49 | ER Document Report ---
ED Medical Screen (RME) - General Chief Complaint: Finger Injury Stated Complaint: FINGER SWELLING Time Seen by Provider: 03/27/19 17:45 TRAVEL OUTSIDE OF THE [place] IN LAST 30 DAYS: No - HPI Notes: 03/27/19 17:46 Patient is a 48-year-old male with a history of COPD and hypertension who presents complaining of infection to his left fourth finger anteriorly. Patient states that he got a splinter in that finger about 6 days ago which he thought he removed, but since then it has become red, swollen, and painful with possible abscess. Patient states that he is not able to bend his finger at the PIP or DIP joint is of the swelling. Denies CORTEZ, fever, neck pain, URI, CP, SOB, Abd pain, dysuria, back pain. I have treated and performed a rapid initial assessment of this patient. A comprehensive ED assessment and evaluation of the patient, analysis of test results and completion of medical decision making process will be conducted by additional ED providers. PHYSICAL EXAMINATION: GENERAL: Well-appearing, well-nourished and in no acute distress. A&Ox4. Answers questions appropriately. LUNGS: Breath sounds clear to auscultation bilaterally and equal. No wheezes rales or rhonchi. HEART: Regular rate and rhythm without murmurs, rubs, gallops. Left ring finger: + erythema, swelling, ?fluctuance. No obvious streaks. LROM at the PIP/DIP primarily due to swelling. FROM w/o pain/tenderness at the MCP. N/V intact distal. - Related Data Allergies/Adverse Reactions: morphine [Morphine] Allergy (Intermediate, Verified 11/15/18 12:52) Hives naproxen [Naproxen] Adverse Reaction (Mild, Verified 11/15/18 12:52) Nausea Past Medical History - Past Medical History Cardiac Medical History: Reports: Hx Hypercholesterolemia, Hx Hypertension Pulmonary Medical History: Reports: Hx Bronchitis, Hx COPD, Hx Pneumonia Denies: Hx Tuberculosis Renal/ Medical History: Reports: Hx Testicular Torsion. Denies: Hx Peritoneal Dialysis GI Medical History: Reports: Hx Gastroesophageal Reflux Disease, Hx Hiatal Hernia - repaired in 2000 & 09/2015 Musculoskeltal Medical History: Reports Hx Arthritis, Reports Hx Musculoskeletal Deformity, Reports Hx Musculoskeletal Trauma Psychiatric Medical History: Reports: Hx Depression Traumatic Medical History: Reports: Hx Fractures - boxer Past Surgical History: Reports: Hx Abdominal Surgery - hiatal hernia repair 10 years ago and again on 10/07/2015, Hx Appendectomy - 2002, Hx Cholecystectomy - 2009, Hx Genitourinary Surgery - testicular torsion pexy 1984 - Immunizations Immunizations up to date: Yes Hx Diphtheria, Pertussis, Tetanus Vaccination: Yes - 2006 Physical Exam - Vital signs Vitals: Temp Pulse Resp BP Pulse Ox 98.5 F 73 16 158/88 H 97 03/27/19 17:41 03/27/19 17:41 03/27/19 17:41 03/27/19 17:41 03/27/19 17:41 Course - Vital Signs Vital signs: Temp Pulse Resp BP Pulse Ox 98.5 F 73 16 158/88 H 97 03/27/19 17:41 03/27/19 17:41 03/27/19 17:41 03/27/19 17:41 03/27/19 17:41
[2019-03-27 18:18] LABS: ABSOLUTE BASOPHILS # (AUTO) 0.1 10^3/uL (0.0-0.2); ABSOLUTE EOSINOPHILS # (AUTO) 0.1 10^3/uL (0.0-0.6); ABSOLUTE LYMPHOCYTES (AUTO) 1.7 10^3/uL (0.5-4.7); ABSOLUTE MONOCYTES (AUTO) 0.7 10^3/uL (0.1-1.4); ABSOLUTE NEUT (AUTO) 7.1 10^3/uL (1.7-8.2); BASOPHILS % (AUTO) 0.6 % (0-2); EOSINOPHILS % (AUTO) 0.9 % (0-6); HEMATOCRIT 38.4 % (37.9-51.0); HEMOGLOBIN 13.3 g/dL (13.5-17.0); LYMPHOCYTES % (AUTO) 18.1 % (13-45); MEAN CORPUSCULAR HEMOGLOBIN 32.1 pg (27.0-33.4); MEAN CORPUSCULAR HGB CONC 34.5 g/dL (32.0-36.0); MEAN CORPUSCULAR VOLUME 93 fl (80-97); MONOCYTES % (AUTO) 6.9 % (3-13); PLATELET COUNT 292 10^3/uL (150-450); RED BLOOD COUNT 4.13 10^6/uL (4.35-5.55); RED CELL DISTRIBUTION WIDTH 13.9 % (11.5-14.0); SEGMENTED NEUTROPHILS % (AUTO) 73.5 % (42-78); TOTAL CELLS COUNTED % (AUTO) 100 %; WHITE BLOOD COUNT 9.7 10^3/uL (4.0-10.5)
[2019-03-27 18:37] LABS: ANION GAP 11 (5-19); BLOOD UREA NITROGEN 13 mg/dL (7-20); CALCIUM 9.4 mg/dL (8.4-10.2); CARBON DIOXIDE 23 mmol/L (22-30); CHLORIDE 108 mmol/L (98-107); GLUCOSE 80 mg/dL (75-110); POTASSIUM 4.5 mmol/L (3.6-5.0); SODIUM 142.1 mmol/L (137-145)
--- NOTE | 2019-03-27 18:44 | RADIOLOGY REPORT (SQ) ---
EXAM DESCRIPTION: HAND LEFT 3 VIEWS COMPLETED DATE/TIME: 03/27/2019 6:06 pm REASON FOR STUDY: pain, swelling, possible wooden fb ring finger COMPARISON: None. EXAM PARAMETERS: NUMBER OF VIEWS: Three views. TECHNIQUE: AP, lateral and oblique radiographic images acquired of the left hand. LIMITATIONS: None. FINDINGS: MINERALIZATION: Normal. BONES: No acute fracture or dislocation. No worrisome bone lesions. JOINTS: No effusions. SOFT TISSUES: Soft tissue swelling in the 4th digit. OTHER: No other significant finding. IMPRESSION: Soft tissue swelling. No radiopaque foreign body. TECHNICAL DOCUMENTATION: JOB ID: [id number] [employer]- All Rights Reserved Reading location - IP/workstation name: [email or web address]
[2019-03-27] MEDS ORDERED: VANCOMYCIN HCL INJ 1000 MG VIAL IV ONE (19:27)
[2019-03-27] MEDS ORDERED: CEFTRIAXONE 1 GM/D5W RTU 1 GM/50 ML RTUPB IV ONE (19:27)
[2019-03-27] MEDS ORDERED: HYDROMORPHONE HCL INJ/PF 2 MG/ML AMPULE SUBCUT ONE (19:28)
[2019-03-27] MEDS ORDERED: ONDANSETRON HCL INJ/PF 4 MG/2 ML SDV IV ONE (19:29)
--- NOTE | 2019-03-27 19:35 | ER Document Report ---
ED General - General Chief Complaint: Finger Injury Stated Complaint: FINGER SWELLING Time Seen by Provider: 03/27/19 17:45 Primary Care Provider: SHELIA SENA PA-C [Emergency Provider] - Follow up as needed Mode of Arrival: Ambulatory Information source: Patient TRAVEL OUTSIDE OF THE [place] IN LAST 30 DAYS: No - HPI Patient complains to provider of: Left ring finger infection Onset: Other - 6 days ago Onset/Duration: Gradual Quality of pain: Sharp, Throbbing Severity: Severe Pain Level: 5 Associated symptoms: denies: Chills, Fever Exacerbated by: Movement Relieved by: Denies Similar symptoms previously: No Recently seen / treated by doctor: No Notes: 48-year-old male coming in today with swollen left ring finger. States 6 days ago he removed a wooden splinter from this finger. It came up with a small pustule which he does again with a needle and drained some pus out of it. The finger subsequently is gotten redder and more swollen. Still able to bend it but with some discomfort. - Related Data Allergies/Adverse Reactions: morphine [Morphine] Allergy (Intermediate, Verified 03/27/19 17:47) Hives naproxen [Naproxen] Adverse Reaction (Mild, Verified 03/27/19 17:47) Nausea Past Medical History - General Information source: Patient - Social History Smoking Status: Current Every Day Smoker Frequency of alcohol use: Social Drug Abuse: None Family History: Reviewed & Not Pertinent, Arthritis, CAD, CVA, Hyperlipidemia, Hypertension, Other Patient has suicidal ideation: No Patient has homicidal ideation: No - Past Medical History Cardiac Medical History: Reports: Hx Hypercholesterolemia, Hx Hypertension Pulmonary Medical History: Reports: Hx Bronchitis, Hx COPD, Hx Pneumonia Denies: Hx Tuberculosis Renal/ Medical History: Reports: Hx Testicular Torsion. Denies: Hx Peritoneal Dialysis GI Medical History: Reports: Hx Gastroesophageal Reflux Disease, Hx Hiatal Hernia - repaired in 2000 & 09/2015 Musculoskeletal Medical History: Reports Hx Arthritis, Reports Hx Musculoskeletal Deformity, Reports Hx Musculoskeletal Trauma Psychiatric Medical History: Reports: Hx Depression Traumatic Medical History: Reports: Hx Fractures - boxer Past Surgical History: Reports: Hx Abdominal Surgery - hiatal hernia repair 10 years ago and again on 10/07/2015, Hx Appendectomy - 2002, Hx Cholecystectomy - 2009, Hx Genitourinary Surgery - testicular torsion pexy 1984 - Immunizations Immunizations up to date: Yes Hx Diphtheria, Pertussis, Tetanus Vaccination: Yes - 2006 Review of Systems - Review of Systems Notes: Constitutional: No fevers. No chills. EENT: No eye redness. No eye pain. No ear pain. No sore throat. Cardiovascular: No chest pain. No palpitations. Respiratory: No cough. No shortness of breath. No respiratory distress. Gastrointestinal: No abdominal pain. No nausea, vomiting, or diarrhea. Genitourinary: Atraumatic. No lesions. No pain. No discharge. Musculoskeletal: Positive left ring finger infection Skin: No rash or lesions. Lymphatic: No swollen lymph nodes. Neurologic: No headache. No syncope. Psychiatric: No suicidal or homicidal ideation. Physical Exam - Vital signs Vitals: Temp Pulse Resp BP Pulse Ox 98.5 F 73 16 158/88 H 97 03/27/19 17:41 03/27/19 17:41 03/27/19 17:41 03/27/19 17:41 03/27/19 17:41 - Notes Notes: General: Well-developed, well-nourished. In no acute distress. Non-toxic appearing. Cardiac: Well-perfused. Regular rate and rhythm. No murmurs, rubs, or gallops. Pulmonary: No respiratory distress. No cyanosis. Bilateral lung fiels are clear to auscultation. Abdominal: Non-distended. Non-rigid. Bowels sounds are present in all four quadrants. No guarding or rebound. HEENT: Head is atraumatic. Conjunctivae not reddened. No tearing. PERRL. EOMI. Orbits atraumatic. No periorbital swelling or erythema. Oropharynx is without erythema, swelling, or exudates. Neck: Supple. No adenopathy. No meningismus. Dermatologic: Warm with good turgor. No rash. Atraumatic. Chest: Atraumatic. No chest wall tenderness to palpation. Musculoskeletal: Left ring finger is swollen over the proximal phalanx. There is an open wounds to the palmar surface of the finger over the middle phalanx. Finger is slightly flexed at rest. Able to extend. Able to flex but with some severe discomfort. Genitourinary: Examination deferred Neurologic: No gross neurologic deficits. Psychiatric: Normal mood. Course - Re-evaluation Re-evalutation: 03/27/19 19:[address] Oliva who is the orthopedic doctor at [facility] today. He says that as long as the finger is mobile that it is probably not tenosynovitis and does not need surgical intervention. However, he does recommend antibiotics and if the patient does not improve on outpatient antibiotics, he will need to be brought in for IV antibiotics. 03/27/19 20:15 Digital block consisting of 5 mL's normal lidocaine and 5 mL's Marcaine was injected to the left ring finger for pain control. - Vital Signs Vital signs: Temp Pulse Resp BP Pulse Ox 98.5 F 73 16 158/88 H 97 03/27/19 17:41 03/27/19 17:41 03/27/19 17:41 03/27/19 17:41 03/27/19 17:41 - Laboratory Result Diagrams: 03/27/19 16:00 03/27/19 16:00 Laboratory results interpreted by me: 03/27/19 03/27/19 16:00 16:00 RBC 4.13 L Hgb 13.3 L Chloride 108 H Discharge - Discharge Clinical Impression: Cellulitis of finger, left Condition: Good Disposition: HOME, SELF-CARE Instructions: Cellulitis (OM) Additional Instructions: Take the antibiotics as directed as an outpatient. Recheck in this emergency d epartment in 2 days. If you notice that it is drastically worse tomorrow, please return tomorrow. Prescriptions: Hydrocodone/Acetaminophen [[place] 7.5-325 mg Tablet] 1 tab PO Q6HP PRN #10 tablet PRN Reason: Cephalexin Monohydrate [Keflex 500 mg Capsule] 500 mg PO Q6H 10 Days #40 capsule Sulfamethoxazole/Trimethoprim [Bactrim Ds Tablet] 1 each PO BID 10 Days #20 tablet Referrals: SHELIA SENA PA-C [Emergency Provider] - Follow up as needed
[2019-03-27] MEDS ORDERED: BUPIVACAINE HCL 0.5 % INJ/PF 30 ML SDV INJ ONE (20:16)
[2019-03-27] MEDS ORDERED: LIDOCAINE 1.5% INJ-MPF (15 MG/ML) 20 ML AMPUL INJ ONE (20:16)
[2019-03-27 22:42] VITALS: BP 146/85
== END 2019-03-27 22:42 | disposition home or self-care (01) ==
LOC: ER 17:26
DX: L03.012 Cellulitis of left finger (principal); Z23 Encounter for immunization; E78.00 Pure hypercholesterolemia, unspecified; I10 Essential (primary) hypertension; F17.200 Nicotine dependence, unspecified, uncomplicated; Z88.6 Allergy status to analgesic agent
CPT/HCPCS: 99283; 96372; 90471; 96375; 96365; 96367; 36415; 85025; 80048; 73130; 90715; J1170; J2405; J3370; J0696